=== PATIENT | female | born 1945 | race Caucasian/White ===

== ENCOUNTER → 2016-11-10 | Outpatient (CLI) | payer MEDICARE ==
[~2016-11-10] MED LIST: ALBU1.25 NEB; ASPI81TA2 PO; CRESTOR20 MG PO; FURO40TA4 PO; GABA-585 PO; GLIM4TAB2 PO; INSU100I11 SQ; INSU100I13 SQ; IOHEXOL 240 MG/ML 50ML VIAL. ONE; IOHEXOL 300 MG/ML 75 ML VIAL. IV ONE; LEVO175T5 PO; LISI-338 PO; METF10002 PO; NYST15CR TP; VALA500T PO
--- NOTE | 2016-11-10 13:49 | RAD ---
CT of the abdomen and pelvis with contrast, 11/10/2016: History: Chronic abdominal pain Multidetector CT imaging was performed following oral and IV administration of contrast. Comparison is made to a study from 07/20/2016. There are persistent streaky basilar opacities compatible with scarring and/or chronic atelectasis. No pleural fluid is present. The gallbladder is surgically absent. No hepatic abnormality is seen. There is mild prominence of the common bile duct compatible with the postcholecystectomy state. No pancreatic abnormality is detected. The spleen is of normal size. There is bilateral renal cortical scarring. There is no evidence of renal obstruction. There is a 17 mm unchanged cyst arising from the lateral aspect of the right kidney. Several other subcentimeter low-density cortical lesions on the right are too small to definitively characterize but are probably cysts. There is a medium density nodule arising from the lower pole of the left kidney. It is best delineated on the current coronal views. It measures approximately 13 mm in greatest dimension with an internal CT number of 33 Hounsfield units. It has shown no definite change since 07/20/2016. It was not visible on an older study from 08/21/2011. This may be a complicated cyst, although a solid mass cannot be excluded. There is moderate aortoiliac calcific plaquing. There is mild unchanged dilatation of the infrarenal abdominal aorta which measures 30 x 28 mm. No abdominal or pelvic adenopathy is seen. The uterus is surgically absent. Scattered colonic diverticula are present. No paracolonic inflammatory process is seen. There are surgical sutures related to the sigmoid colon. The bowel loops are not dilated. No free fluid or free air is evident in the abdomen or pelvis. There is a persistent discoid shaped fluid collection in the subcutaneous soft tissues of the anterior abdominal wall centered just left of midline at the upper pelvic level. This apparently represents a chronic postsurgical fluid collection. It has decreased slightly in size since the previous study, currently measuring approximately 2 cm in greatest AP dimension. Its wall contains tiny radiopacities compatible with calcifications. There are mild to moderate scattered degenerative changes in the spine. IMPRESSION: 1. Colonic diverticulosis. 2. The postsurgical fluid collection in the anterior pelvic wall has decreased slightly in size since 07/20/2016. 3. Small right renal cyst. 4. Small complicated cyst versus solid nodule in the left kidney. It is doubtful that sonographic evaluation of this lesion would be helpful due to the patient's size and the position of this lesion. CT or MR follow-up is suggested. 5. Chronic bibasilar atelectasis and/or scarring. 6. Stable small distal abdominal aortic aneurysm. PQRS Compliance Statement: One or more of the following individualized dose reduction techniques were utilized for this examination: 1. Automated exposure control 2. Adjustment of the mA and/or kV according to patient size 3. Use of iterative reconstruction technique
== END | disposition home or self-care (01) ==
LOC: CT 08:00
PROVIDERS: ATTEND Surgery
DX: R10.9 Unspecified abdominal pain (principal); I10 Essential (primary) hypertension; Z79.01 Long term (current) use of anticoagulants; Z87.891 Personal history of nicotine dependence; E11.9 Type 2 diabetes mellitus without complications
CPT/HCPCS: 74177; Q9966; Q9967

== ENCOUNTER 2018-08-09 11:51 | Observation (INO) | payer OTHER ==
[~2018-08-09] VITALS: Ht 149.9 cm; Wt 87.2 kg
[~2018-08-09 11:51] MED LIST changes: +ASPI-630 PO; -ASPI81TA2 PO; -IOHEXOL 240 MG/ML 50ML VIAL. ONE; -IOHEXOL 300 MG/ML 75 ML VIAL. IV ONE; -METF10002 PO; +METF10007 PO
[2018-08-09] MEDS ORDERED: ASPIRIN 81 MG TAB.CHEW PO ONE (12:45)
[2018-08-09] MEDS ORDERED: LORazepam 1 MG TABLET PO ONE (12:45)
[2018-08-09 12:47] LABS: BASO % 1 % (0-3); EOS # 0.1 x10^3/uL (0.0-0.7); EOS % 1 % (0-3); HEMATOCRIT 42.4 % (36.0-47.0); HEMOGLOBIN 14.3 g/dL (12.0-15.5); LYMPH # 1.4 x10^3/uL (1.0-4.8); LYMPH % 14 % (24-48); MEAN CORPUSCULAR HEMOGLOBIN 30 pg (25-35); MEAN CORPUSCULAR HGB CONC 34 g/dL (31-37); MEAN CORPUSCULAR VOLUME 90 fL (79-100); MONO # 0.9 x10^3/uL (0.0-1.1); MONO % 9 % (0-9); NEUT # 7.2 x10^3uL (1.8-7.7); NEUT % 75 % (31-73); PLATELET COUNT 271 x10^3/uL (140-400); RED BLOOD COUNT 4.72 x10^6/uL (3.50-5.40); RED CELL DISTRIBUTION WIDTH 14.6 % (11.5-14.5); WHITE BLOOD COUNT 9.7 x10^3/uL (4.0-11.0)
--- NOTE | 2018-08-09 12:52 | PHYS DOC ---
Past History Past Medical History: Anxiety, CAD, Diabetes, High Cholesterol, Heart Disease, Hypertension Past Surgical History: Coronary Bypass Surgery Smoking: Quit Greater Than 1 Year Adult General Chief Complaint Chief Complaint: CHEST PAIN HPI HPI Patient is a 73-year-old female presents to the emergency department for evaluation. She states that last night, he began experiencing some left-sided chest discomfort. She describes the pain as an achy pain, and it has been coming and going since then, and it has been occurring more frequently this morning. She has NOT had any significant shortness of breath and denies any pleuritic pain. Exertion does not seem to worsen her pain. She states the pain will last for a few seconds and then disappear. She has a past history of coronary artery disease with bypass surgery about 15 years ago, but is uncertain if the pain that she is experiencing is similar to her prior cardiac pain. She appears extremely anxious and does admit to an underlying history of anxiety. The patient does take baby aspirin daily, including this morning. Review of Systems Review of Systems Constitutional: Denies fever or chills [] Eyes: Denies change in visual acuity, redness, or eye pain [] HENT: Denies nasal congestion or sore throat [] Respiratory: Denies cough or shortness of breath [] Cardiovascular: No additional information not addressed in HPI [] GI: Denies abdominal pain, nausea, vomiting, bloody stools or diarrhea [] : Denies dysuria or hematuria [] Musculoskeletal: Denies back pain or joint pain [] Integument: Denies rash or skin lesions [] Neurologic: Denies headache, focal weakness or sensory changes [] Endocrine: Denies polyuria or polydipsia [] All other systems were reviewed and found to be within normal limits, except as documented in this note. Current Medications Current Medications Current Medications Medications (Trade) Dose Ordered Sig/Héctor Start Time Stop Time Status Last Admin Dose Admin Aspirin (Children'S Aspirin) 243 mg 1X ONCE 08/09/18 12:45 08/09/18 12:46 UNV Lorazepam (Ativan) 1 mg 1X ONCE 08/09/18 12:45 08/09/18 12:46 UNV Sodium Chloride 1,000 ml @ 75 mls/hr 1X ONCE 08/09/18 13:00 08/10/18 02:19 UNV Allergies Allergies Allergies Coded Allergies Type Severity Reaction Last Updated Verified morphine Allergy Unknown 07/20/16 Yes Physical Exam Physical Exam PHYSICAL EXAM: CONSTITUTIONAL: Well developed, well nourished HEAD: normocephalic, atraumatic EENT: PERRL, EOMI. Conjunctivae normal color, sclerae non-icteric; moist mucous membranes. NECK: Supple, non-tender; no meningismus. LUNGS: Lungs CTA, breathing even and unlabored. Normal air movement. HEART: Regular rate and rhythm, no murmur CHEST: No deformity; non-tender ABDOMEN: The abdomen is soft, and non-tender, no masses or bruits. EXTREM: Normal ROM; no deformity, no calf tenderness. Normal pulses palpable in all extremities. There is no pedal edema. SKIN: No rash; no diaphoresis NEURO: Alert; normal speech and cognition; CN's grossly intact; strength grossly intact without focal deficit. BACK: No CVA TTP. PSYCHIATRIC: The patient exhibits a severely anxious affect. Current Patient Data Lab Results Laboratory Tests Test 08/09/18 12:15 08/09/18 12:23 White Blood Count 9.7 x10^3/uL Red Blood Count 4.72 x10^6/uL Hemoglobin 14.3 g/dL Hematocrit 42.4 % Mean Corpuscular Volume 90 fL Mean Corpuscular Hemoglobin 30 pg Mean Corpuscular Hemoglobin Concent 34 g/dL Red Cell Distribution Width 14.6 % Platelet Count 271 x10^3/uL Neutrophils (%) (Auto) 75 % Lymphocytes (%) (Auto) 14 % Monocytes (%) (Auto) 9 % Eosinophils (%) (Auto) 1 % Basophils (%) (Auto) 1 % Neutrophils # (Auto) 7.2 x10^3uL Lymphocytes # (Auto) 1.4 x10^3/uL Monocytes # (Auto) 0.9 x10^3/uL Eosinophils # (Auto) 0.1 x10^3/uL Basophils # (Auto) 0.0 x10^3/uL Sodium Level 137 mmol/L Potassium Level 5.3 mmol/L Chloride Level 99 mmol/L Carbon Dioxide Level 26 mmol/L Anion Gap 12 Blood Urea Nitrogen 41 mg/dL Creatinine 1.5 mg/dL Estimated GFR (Cockcroft-Gault) 33.9 BUN/Creatinine Ratio 27 Glucose Level 195 mg/dL Calcium Level 9.6 mg/dL Magnesium Level 2.1 mg/dL Total Bilirubin 0.3 mg/dL Aspartate Amino Transf (AST/SGOT) 15 U/L Alanine Aminotransferase (ALT/SGPT) 16 U/L Alkaline Phosphatase 118 U/L Troponin I Quantitative < 0.017 ng/mL [id number]-Type Natriuretic Peptide 72 pg/mL Total Protein 7.2 g/dL Albumin 3.7 g/dL Albumin/Globulin Ratio 1.1 Glucose (Fingerstick) 164 mg/dL Current Medications Medications (Trade) Dose Ordered Sig/Héctor Route PRN Reason Start Time Stop Time Status Last Admin Dose Admin Aspirin (Children'S Aspirin) 243 mg 1X ONCE PO 08/09/18 12:45 08/09/18 12:52 DC 08/09/18 13:29 Lorazepam (Ativan) 1 mg 1X ONCE PO 08/09/18 12:45 08/09/18 12:52 DC 08/09/18 13:29 Sodium Chloride 1,000 ml @ 75 mls/hr 1X ONCE IV 08/09/18 13:00 08/10/18 02:19 08/09/18 13:29 Laboratory Tests Test 08/09/18 12:15 08/09/18 12:23 White Blood Count 9.7 x10^3/uL Red Blood Count 4.72 x10^6/uL Hemoglobin 14.3 g/dL Hematocrit 42.4 % Mean Corpuscular Volume 90 fL Mean Corpuscular Hemoglobin 30 pg Mean Corpuscular Hemoglobin Concent 34 g/dL Red Cell Distribution Width 14.6 % Platelet Count 271 x10^3/uL Neutrophils (%) (Auto) 75 % Lymphocytes (%) (Auto) 14 % Monocytes (%) (Auto) 9 % Eosinophils (%) (Auto) 1 % Basophils (%) (Auto) 1 % Neutrophils # (Auto) 7.2 x10^3uL Lymphocytes # (Auto) 1.4 x10^3/uL Monocytes # (Auto) 0.9 x10^3/uL Eosinophils # (Auto) 0.1 x10^3/uL Basophils # (Auto) 0.0 x10^3/uL Sodium Level 137 mmol/L Potassium Level 5.3 mmol/L Chloride Level 99 mmol/L Carbon Dioxide Level 26 mmol/L Anion Gap 12 Blood Urea Nitrogen 41 mg/dL Creatinine 1.5 mg/dL Estimated GFR (Cockcroft-Gault) 33.9 BUN/Creatinine Ratio 27 Glucose Level 195 mg/dL Calcium Level 9.6 mg/dL Magnesium Level 2.1 mg/dL Total Bilirubin 0.3 mg/dL Aspartate Amino Transf (AST/SGOT) 15 U/L Alanine Aminotransferase (ALT/SGPT) 16 U/L Alkaline Phosphatase 118 U/L Troponin I Quantitative < 0.017 ng/mL [id number]-Nhi-[id number]-Type Natriuretic Peptide 72 pg/mL Total Protein 7.2 g/dL Albumin 3.7 g/dL Albumin/Globulin Ratio 1.1 Glucose (Fingerstick) 164 mg/dL Current Medications Medications (Trade) Dose Ordered Sig/Héctor Route PRN Reason Start Time Stop Time Status Last Admin Dose Admin Aspirin (Children'S Aspirin) 243 mg 1X ONCE PO 08/09/18 12:45 08/09/18 12:52 DC 08/09/18 13:29 Lorazepam (Ativan) 1 mg 1X ONCE PO 08/09/18 12:45 08/09/18 12:52 DC 08/09/18 13:29 Sodium Chloride 1,000 ml @ 75 mls/hr 1X ONCE IV 08/09/18 13:00 08/10/18 02:19 08/09/18 13:29 Laboratory Tests Test 08/09/18 12:15 08/09/18 12:23 White Blood Count 9.7 x10^3/uL (4.0-11.0) Red Blood Count 4.72 x10^6/uL (3.50-5.40) Hemoglobin 14.3 g/dL (12.0-15.5) Hematocrit 42.4 % (36.0-47.0) Mean Corpuscular Volume 90 fL (79-100) Mean Corpuscular Hemoglobin 30 pg (25-35) Mean Corpuscular Hemoglobin Concent 34 g/dL (31-37) Red Cell Distribution Width 14.6 % (11.5-14.5) H Platelet Count 271 x10^3/uL (140-400) Neutrophils (%) (Auto) 75 % (31-73) H Lymphocytes (%) (Auto) 14 % (24-48) L Monocytes (%) (Auto) 9 % (0-9) Eosinophils (%) (Auto) 1 % (0-3) Basophils (%) (Auto) 1 % (0-3) Neutrophils # (Auto) 7.2 x10^3uL (1.8-7.7) Lymphocytes # (Auto) 1.4 x10^3/uL (1.0-4.8) Monocytes # (Auto) 0.9 x10^3/uL (0.0-1.1) Eosinophils # (Auto) 0.1 x10^3/uL (0.0-0.7) Basophils # (Auto) 0.0 x10^3/uL (0.0-0.2) Glucose (Fingerstick) 164 mg/dL (70-99) H EKG EKG [Normal sinus rhythm a rate of 107 beats for minute, normal axis, normal intervals, left atrial enlargement, there are no acute ischemic ST/T changes.] Radiology/Procedures Radiology/Procedures [PROCEDURE: CHEST AP ONLY Chest radiograph 08/09/2018 12:09 PM INDICATION: Shortness of air, chest pain COMPARISON: None available TECHNIQUE: Portable upright frontal view of the chest is provided. FINDINGS: The cardiomediastinal silhouette is enlarged. Median sternotomy changes are present. Bibasilar strandy density may represent subsegmental atelectasis versus infiltrates. Mild pulmonary vascular congestion. No pneumothorax. IMPRESSION: Bibasilar strandy density may represent subsegmental atelectasis versus infiltrates. Cardiomegaly with mild pulmonary vascular congestion as may be seen with congestive heart failure. ] Course & Med Decision Making Course & Med Decision Making Pertinent Labs and Imaging studies reviewed. (See chart for details) [] Dragon Disclaimer Dragon Disclaimer This electronic medical record was generated, in whole or in part, using a voice recognition dictation system. Departure Departure: Impression: Primary Impression: Atypical chest pain Additional Impression: Dehydration Disposition: ADMITTED INPATIENT Admitting Physician: Rachel Kramer Condition: STABLE Referrals: JOYCE MUNOZ (PCP) Problem Qualifiers MELIZA JACOBS MD Aug 09, 2018 12:52
[2018-08-09] MEDS ORDERED: IV NORMAL SALINE 1,000ML 1,000 ML IV ONE (13:00)
[2018-08-09 13:01] LABS: ALBUMIN 3.7 g/dL (3.4-5.0); ALBUMIN/GLOBULIN RATIO 1.1 (1.0-1.7); CALCIUM 9.6 mg/dL (8.5-10.1); CREATININE 1.5 mg/dL (0.6-1.0); GFR 33.9; POTASSIUM 5.3 mmol/L (3.5-5.1); TOTAL BILIRUBIN 0.3 mg/dL (0.2-1.0); TOTAL PROTEIN 7.2 g/dL (6.4-8.2)
--- NOTE | 2018-08-09 13:13 | RAD ---
Chest radiograph 08/09/2018 12:09 PM INDICATION: Shortness of air, chest pain COMPARISON: None available TECHNIQUE: Portable upright frontal view of the chest is provided. FINDINGS: The cardiomediastinal silhouette is enlarged. Median sternotomy changes are present. Bibasilar strandy density may represent subsegmental atelectasis versus infiltrates. Mild pulmonary vascular congestion. No pneumothorax. IMPRESSION: Bibasilar strandy density may represent subsegmental atelectasis versus infiltrates. Cardiomegaly with mild pulmonary vascular congestion as may be seen with congestive heart failure. Electronically signed by: Zhanna Daniels MD (08/09/2018 1:09 PM) [id number]
[2018-08-09 13:28] LABS: MAGNESIUM 2.1 mg/dL (1.8-2.4)
[2018-08-09 14:15] LABS: CLARITY,URINE HAZY; COLOR,URINE STRAW; GLUCOSE,URINE NEG (NEG)
[2018-08-09 14:16] LABS: BACTERIA,URINE MOD /HPF (0-FEW); BILIRUBIN,URINE NEG (NEG); NITRITE,URINE NEG (NEG); RBC,URINE 0 /HPF (0-2); SQUAMOUS EPITHELIAL CELL,UR FEW /LPF; UROBILINOGEN,URINE 0.2 mg/dL (0.2 mg/dL); WBC,URINE OCC /HPF (0-4)
[2018-08-09 15:09] VITALS: BP 102/59
[2018-08-09] MEDS ORDERED: SODIUM POLYSTYRENE SULFONATE 15 GM/60 ML ORAL.SUSP. PO ONE (16:45)
[2018-08-09] MEDS ORDERED: LACTULOSE 20 GM/30 ML SOLUTION. PO ONE (16:45)
--- NOTE | 2018-08-09 17:38 | EKG ---
[address] [address] Test Date: 2018-08-09 Test Time: 12:02:58 Pat Name: DIONTE CHAPA Department: Room: 117 A Gender: F [employer] Associate: DONALD : 1945 Requested By: MELIZA JACOBS Order Number: [id number] Reading MD: Todd Wolfe Measurements Intervals [place] Rate: 107 P: 71 MN: 136 QRS: 60 QRSD: 92 T: 69 QT: 344 QTc: 459 Interpretive Statements SINUS TACHYCARDIA LEFT ATRIAL ABNORMALITY Electronically Signed On 08-16-2018 11:05:24 ANIMAL SHELTER CLERK by Todd Wolfe
--- NOTE | 2018-08-09 17:41 | HP ---
ADMIT DATE: 08/09/2018 HISTORY OF PRESENT ILLNESS: This patient is a 73-year-old female patient, who came to the Emergency Department, complaining of a left-sided chest pain that she describes as sharp and stabbing, started last night that lasted only a few seconds. It comes and goes since then and has occurred more frequently this morning. She stated that her shortness of breath has not worsened and the sharp pain happens at rest and on exertion. She denied any nausea or vomiting. Denied any diaphoresis, denied any radiation of the pain. Pain is mostly located the left side below her left breast. 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 At that time, her stress test was normal. She was evaluated in the Emergency Room. Her troponin was less than 0.017 and her EKG showed that she was in sinus rhythm at a heart rate of 107 beats per minute, normal axis, normal intervals, left atrial enlargement. There is no acute distress, ischemic ST-T changes. Her chest x-ray showed no evidence of any bibasilar strandy density, may represent subsegmental atelectasis versus infiltrate. The patient was admitted with left-sided chest pain. She was admitted to rule out myocardial infarction and to do 2 more sets of cardiac enzyme and consult the cardiology team. PAST MEDICAL HISTORY: Significant for type 2 diabetes, hypertension, hyperlipidemia, coronary artery disease, status post CABG about 16 years ago. Her last stress test was done about more than 2 years ago. She is known to have hypothyroidism and chronic obstructive pulmonary disease. PAST SURGICAL HISTORY: Significant for coronary artery bypass graft surgery, hernia repair, partial colectomy for diverticulitis, total abdominal hysterectomy, bilateral salpingo-oophorectomy, appendectomy, cholecystectomy, and colonoscopy. She also has a history of deep vein thrombosis, treated with Coumadin for a few years and was involving her left lower extremity that was subsequently discontinued. ALLERGIES: SHE IS ALLERGIC TO MORPHINE. MEDICATIONS: She is currently on following medications: She is on valacyclovir 500 mg p.o. daily, albuterol sulfate 1.25 mg in 3 mL by nebulizer every 6 hours, Crestor 20 mg daily, lisinopril 5 mg daily, aspirin 81 mg once a day, gabapentin 100 mg 3 times a day, furosemide 40 mg daily, metformin 1000 mg p.o. b.i.d. She is on Lantus insulin 30 units subcutaneously at bedtime, Humalog insulin 3 times a day before meals, glimepiride 4 mg daily, levothyroxine sodium 175 mcg once a day, nystatin cream applied topically 3 times a day. FAMILY HISTORY: She has 3 sisters and 4 brothers, all except one sister. Her father at age of 81 because of motor vehicle accident. Mother at the age of 70 because of myocardial infarction. SOCIAL HISTORY: She is . She has 3 sons and 4 daughters. She quit smoking 4 years ago. She does not drink alcohol or recreational drugs. 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 REVIEW OF SYSTEMS: The patient denied any blurring of vision, cataract, glaucoma or macular degeneration. Denied any earache, tinnitus or sensorineural deafness. Denied any nosebleeds, stuffy nose or postnasal drip. Denied any sore throat, sore tongue, toothache, hoarseness of voice or difficulty swallowing. She denied any nausea, vomiting, diarrhea or constipation. Denied any hematemesis, melena or hematochezia. Denied any dysuria, frequency or hematuria. She did complain of chest pain, but denied any shortness of breath. Denied any cough, phlegm or hemoptysis. Denied any dizziness, lightheadedness, or vertigo. Denied any chills, rigors or fever. PHYSICAL EXAMINATION: GENERAL: On arrival to the Emergency Room, the patient looked well and was clearly in no apparent respiratory distress, somewhat pale, but no jaundice, cyanosis, or thyromegaly. No jugular venous distension. No limb edema. VITAL SIGNS: Her heart rate was 105, blood pressure 117/61, temperature was 97.9, respiratory rate was 18 and oxygen saturation was 95% on 2 liters of oxygen. HEAD, EYES, EARS, NOSE, AND THROAT: Showed normocephalic, atraumatic. NECK: Supple. HEART: Showed normal first and second heart sounds with no gallop, rub or murmur. CHEST: Clear to auscultation. No crepitation or rhonchi. ABDOMEN: Distended, soft, nontender. No guarding or rigidity. No organomegaly. All hernial orifice intact. Bowel sounds normal. NEUROLOGIC: She is awake, alert, responding appropriately. All cranial nerves intact. EXTREMITIES: She moves extremities without difficulty. She ambulates without assistance or assistive devices. She is on oxygen at 1 liter of oxygen, it used on exertion. LABORATORY DATA: Showed a white cell count of 9700, hemoglobin 14, hematocrit 42, MCV 90 and platelet count of 271,000. Her serum sodium was 137, potassium 5.3, chloride 99, bicarbonate 26, anion gap of 12, BUN 41, creatinine 1.5, estimated GFR was 33 mL per minute. Her glucose was 195, calcium was 9.6, and magnesium was 2.1. Total bilirubin, AST, ALT, alkaline phosphatase are normal except alkaline phosphatase was slightly elevated. Her first set of cardiac enzymes showed troponin to be less than 0.017. Beta-natriuretic peptide was 72. Total protein was 7.2, albumin was 3.7. Her urinalysis was unremarkable. Her chest x-ray showed that the cardiomediastinal silhouette is enlarged. Median sternotomy changes are present. Bibasilar strandy density may represent subsegmental atelectasis versus infiltrate, mild pulmonary vascular congestion, no pneumothorax. ASSESSMENT AND PLAN: In summary, this is a 73-year-old female patient, who came with somewhat atypical left-sided stabbing chest pain that lasted only about a few seconds, comes and goes and is not associated with any nausea, vomiting, no shortness of breath, no diaphoresis. It comes both with at rest and on exertion. She also has impaired kidney function as well as hyperkalemia. We will do 2 more sets of cardiac enzymes. I will also add D-dimer to rule out the possibility of DVT and PE. Currently, she has no leukocytosis and she is afebrile and at least for the time being, I will hold on antibiotic. FARTUN JOHNSON MD DR: MYRA/sherman JOB#: [id number] / [id number]
[2018-08-09] MEDS ORDERED: GLIP10TA13 PO (17:47)
[2018-08-09] MEDS ORDERED: LEVO100T5 PO (17:47)
[2018-08-09 20:23] VITALS: BP 125/60
[2018-08-09] MEDS: ALBUTEROL SULFATE 2.5 MG/3 ML NEBU. NEB SCH (20:45)
[2018-08-09] MEDS: GABAPENTIN 100 MG CAPSULE. PO SCH (21:11)
[2018-08-09] MEDS: NYSTATIN TOPICAL POWDER 15GM BOTTLE. TP SCH (21:11)
[2018-08-09] MEDS: HEPARIN for SUB-Q USE 5,000 UNIT/ML VIAL. SQ SCH (21:19)
[2018-08-09] MEDS: INSULIN GLARGINE 300 UNITS/3 ML INSULN.PEN. SQ SCH (21:19)
--- NOTE | 2018-08-09 22:38 | RAD ---
EXAM: Bilateral lower extremity venous Doppler sonogram. HISTORY: Pain and swelling. TECHNIQUE: Lebron scale and color Doppler sonographic evaluation of the bilateral lower extremity veins with spectral waveform analysis was performed. FINDINGS: There is normal color flow, normal compressibility and there are normal spectral waveforms in the common femoral, superficial femoral, popliteal, posterior tibial and greater saphenous veins. IMPRESSION: No Doppler evidence of lower extremity deep venous thrombosis. Electronically signed by: Nicol Mcknight MD (08/09/2018 10:35 PM) [facility]
[2018-08-10] MEDS ORDERED: NON FORMULARY ITEM (Albuterol Sulfate (Albuterol Sulfate Neb Soln) 1 VIAL) NEB SCH
[2018-08-10 00:38] VITALS: BP 125/70
[2018-08-10] MEDS: ALBUTEROL SULFATE 2.5 MG/3 ML NEBU. NEB SCH ×4 (05:15→21:03)
[2018-08-10 05:42] VITALS: BP 112/64
[2018-08-10] MEDS: LEVOTHYROXINE 100 MCG TABLET PO SCH (06:19)
[2018-08-10] MEDS: HEPARIN for SUB-Q USE 5,000 UNIT/ML VIAL. SQ SCH ×3 (06:20→21:17)
[2018-08-10] MEDS: ATORVASTATIN CALCIUM 20 MG TABLET PO SCH (08:16)
[2018-08-10] MEDS: GLIMEPIRIDE 2 MG TABLET PO SCH (08:17)
[2018-08-10] MEDS: ASPIRIN 81 MG TAB.CHEW PO SCH (08:17)
[2018-08-10] MEDS: LISINOPRIL 5 MG TABLET. PO SCH (08:17)
[2018-08-10] MEDS: FUROSEMIDE 40 MG TABLET PO SCH (08:17)
[2018-08-10] MEDS: GABAPENTIN 100 MG CAPSULE. PO SCH ×3 (08:17→21:04)
[2018-08-10] MEDS: metFORMIN 500 MG TABLET PO SCH ×2 (08:17→17:24)
[2018-08-10] MEDS: NYSTATIN TOPICAL POWDER 15GM BOTTLE. TP SCH ×2 (08:17→21:13)
[2018-08-10] MEDS: INSULIN LISPRO 300 UNITS/3 ML INSULN.PEN. SQ SCH ×3 (08:21→16:30)
[2018-08-10] MEDS ORDERED: LEVOTHYROXINE 175 MCG TABLET PO SCH (09:00)
[2018-08-10] MEDS ORDERED: VALACYCLOVIR HCL PO SCH (09:00)
--- NOTE | 2018-08-10 09:03 | PDOC2 ---
CONSULT Date of Admission DATE: 08/10/18 TIME: 08:59 Reason for Consult: cp Problem List Problems Medical Problems: (1) Atypical chest pain Status: Acute (2) Dehydration Status: Acute History of Present Illness Ms Ruiz is a 73 year old female with history of coronary artery disease s/p Bypass x 3, hypertension, hyperlipidemia, prior DVT, and diabetes who presents with complaints of chest pain. She describes a sudden squeezing sensation lasting only a couple seconds and occurring off and on. She denies any increase with exertion but does note increase with deep inspiration. She reports some mild dyspnea today but believes this is due to her COPD, she denies congestive symptoms but does sleep normally in a recliner since her bypass surgery. she denies any increased edema from her baseline. She denies any palpitations, lightheadedness or syncope. 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 Cardiovascular: CAD, HTN, [place], hyperipidemia, Other (DVT) Pulmonary: COPD (home oxygen with exertion only) GI: Diverticulosis Heme/Onc: No pertinent hx Hepatobiliary: No pertinent hx Psych: No pertinent hx Musculoskeletal: No pertinent hx Rheumatologic: No pertinent hx Infectious disease: No pertinent hx ENT: No pertinent hx Renal/: Chronic renal insuff Endocrine: Diabetes, Hypothyroidism Dermatology: No pertinent hx Past Surgical History CABG x 3, hysterectomy, bowel surgery Family History CAD Social History +smoker, no significant ETOH, no illicit drugs Current Medications Current Medications Aspirin (Children'S Aspirin) 243 mg 1X ONCE PO Last administered on at 13:29; Start 08/09/18 at 12:45; Stop 08/09/18 at 12:52; Status DC Lorazepam (Ativan) 1 mg 1X ONCE PO Last administered on 08/09/18at 13:29; Start 08/09/18 at 12:45; Stop 08/09/18 at 12:52; Status DC Sodium Chloride 1,000 ml @ 75 mls/hr 1X ONCE IV Last administered on at 13:29; Start 08/09/18 at 13:00; Stop 08/10/18 at 02:19; Status DC Sodium Polystyrene Sulfonate (Kayexalate) 15 gm 1X ONCE PO Last administered on 08/09/18at 18:00; Start 08/09/18 at 16:45; Stop 08/09/18 at 16:46; Status DC Lactulose (Lactulose) 20 gm 1X ONCE PO Last administered on 08/09/18at 18:00; Start 08/09/18 at 16:45; Stop 08/09/18 at 16:46; Status DC Heparin Sodium (Porcine) (Heparin Sodium) 5,000 unit Q8HRS SQ Last administered on 08/10/18 06:20; Start 08/09/18 at 22:00 Gabapentin (Neurontin) 100 mg TID PO Last administered on 08/10/18 08:17; Start 08/09/18 at 21:00 Insulin Glargine (Lantus) 55 units QHS SQ Last administered on 08/09/18at 21:19 ; Start 08/09/18 at 21:00 Insulin Human Lispro (HumaLOG) 18 units TIDAC SQ Last administered on at 08:21; Start 08/10/18 at 07:30 Levothyroxine Sodium (Synthroid) 100 mcg DAILY06 PO Last administered on at 06:19; Start 08/10/18 at 06:00 Levothyroxine Sodium (Synthroid) 175 mcg DAILY PO ; Start 08/10/18 at 09:00; Status UNV Non-Formulary Medication (Albuterol Sulfate (Albuterol Sulfate Neb Soln)) 1 vial Q6HRS NEB ; Start 08/10/18 at 00:00; Status UNV Aspirin (Children'S Aspirin) 81 mg DAILYWBKFT PO Last administered on at 08:17; Start 08/10/18 at 08:00 Furosemide (Lasix) 40 mg DAILY PO Last administered on 08/10/18at 08:17; Start 08/10/18 at 09:00 Glimepiride (Amaryl) 2 mg DAILY PO Last administered on 08/10/18at 08:17; Start 08/10/18 at 09:00 Glipizide (Glucotrol Er) 10 mg DAILY08 PO Last administered on 08/10/18at 08:17 ; Start 08/10/18 at 08:00 Lisinopril (Prinivil) 5 mg DAILY PO Last administered on 08/10/18at 08:17; Start 08/10/18 at 09:00 Metformin HCl (Glucophage) 1,000 mg BIDWMEALS PO Last administered on at 08:17; Start 08/10/18 at 08:00 Nystatin (Nystop) 1 johnson BID TP Last administered on 08/10/18at 08:17; Start at 21:00 Atorvastatin Calcium (Lipitor) 80 mg DAILY PO Last administered on 08/10/18at 08:16; Start 08/10/18 at 09:00 Non-Formulary Medication (Valacyclovir Hcl (Valacyclovir)) 1 tab DAILY PO ; Start 08/10/18 at 09:00; Status UNV Albuterol Sulfate (Ventolin) 2.5 mg RTQID NEB Last administered on 08/10/18at 05:15; Start 08/09/18 at 20:00 Active Scripts Active Reported Glipizide 10 Mg Tablet 1 Tab PO DAILY PRN Levothyroxine Sodium 100 Mcg Tablet 1 Tab PO DAILY PRN Nystatin 15 Gm Cream..g. 1 Johnson TP TID Valacyclovir (Valacyclovir Hcl) 500 Mg Tablet 1 Tab PO DAILY Crestor (Rosuvastatin Calcium) 20 Mg Tablet 1 Tab PO DAILY Metformin Hcl 1,000 Mg Tablet 1 Tab PO BID Lisinopril 5 Mg Tablet 1 Tab PO DAILY Levothyroxine Sodium 175 Mcg Tablet 1 Tab PO DAILY Humalog (Insulin Lispro) 100 Unit/1 Ml Insuln.pen 18 Unit SQ TIDAC Lantus Solostar (Insulin Glargine,Hum.rec.anlog) 100 Unit/1 Ml Insuln.pen 55 Unit SQ QHS Glimepiride 4 Mg Tablet 2 Tab PO DAILY Gabapentin (Gabapentin) 100 Mg Capsule 100 Mg PO TID Furosemide 40 Mg Tablet 1 Tab PO DAILY Aspirin 81 Mg Tab.chew 81 Mg PO DAILY Albuterol Sulfate Neb Soln (Albuterol Sulfate) 1.25 Mg/3 Ml Vial.neb 1 Vial NEB Q6HRS Allergies: Coded Allergies: morphine (Verified Allergy, Unknown, 07/20/16) Review of System as per HPI or negative General: Alert, Oriented X3, Cooperative, No acute distress HEENT: Atraumatic, EOMI, Other (No carotid bruits, no HJR/JVD) Lungs: Other (mildly decreased otherwise clear, no crackles, rhonchi or wheezing) Heart: Normal S1, Normal S2, Other (No gallops, clicks or rubs) Abdomen: Normal bowel sounds, Soft, No tenderness Extremities: No cyanosis, Normal pulses, Other (1+ edema left lower extremity > right) Neuro: Normal gait, Strength at 5/5 X4 ext Psych/Mental Status: Mental status NL, Mood NL VITALS Vital Signs Date Time Temp Pulse Resp B/P (MAP) Pulse Ox O2 Delivery O2 Flow Rate FiO2 08/10/18 08:17 76 112/64 08/10/18 08:00 Room Air 08/10/18 05:42 97.9 20 95 08/10/18 05:15 1.0 Labs Laboratory Tests Test 08/09/18 12:15 08/09/18 12:23 08/09/18 13:25 08/09/18 16:48 White Blood Count 9.7 x10^3/uL (4.0-11.0) Red Blood Count 4.72 x10^6/uL (3.50-5.40) Hemoglobin 14.3 g/dL (12.0-15.5) Hematocrit 42.4 % (36.0-47.0) Mean Corpuscular Volume 90 fL (79-100) Mean Corpuscular Hemoglobin 30 pg (25-35) Mean Corpuscular Hemoglobin Concent 34 g/dL (31-37) Red Cell Distribution Width 14.6 % (11.5-14.5) Platelet Count 271 x10^3/uL (140-400) Neutrophils (%) (Auto) 75 % (31-73) Lymphocytes (%) (Auto) 14 % (24-48) Monocytes (%) (Auto) 9 % (0-9) Eosinophils (%) (Auto) 1 % (0-3) Basophils (%) (Auto) 1 % (0-3) Neutrophils # (Auto) 7.2 x10^3uL (1.8-7.7) Lymphocytes # (Auto) 1.4 x10^3/uL (1.0-4.8) Monocytes # (Auto) 0.9 x10^3/uL (0.0-1.1) Eosinophils # (Auto) 0.1 x10^3/uL (0.0-0.7) Basophils # (Auto) 0.0 x10^3/uL (0.0-0.2) Sodium Level 137 mmol/L (136-145) Potassium Level 5.3 mmol/L (3.5-5.1) Chloride Level 99 mmol/L (98-107) Carbon Dioxide Level 26 mmol/L (21-32) Anion Gap 12 (6-14) Blood Urea Nitrogen 41 mg/dL (7-20) Creatinine 1.5 mg/dL (0.6-1.0) Estimated GFR (Cockcroft-Gault) 33.9 BUN/Creatinine Ratio 27 (6-20) Glucose Level 195 mg/dL (70-99) Calcium Level 9.6 mg/dL (8.5-10.1) Magnesium Level 2.1 mg/dL (1.8-2.4) Total Bilirubin 0.3 mg/dL (0.2-1.0) Aspartate Amino Transf (AST/SGOT) 15 U/L (15-37) Alanine Aminotransferase (ALT/SGPT) 16 U/L (14-59) Alkaline Phosphatase 118 U/L (46-116) Troponin I Quantitative < 0.017 ng/mL (0-0.055) FG-Gag-Q-Type Natriuretic Peptide 72 pg/mL (0-124) Total Protein 7.2 g/dL (6.4-8.2) Albumin 3.7 g/dL (3.4-5.0) Albumin/Globulin Ratio 1.1 (1.0-1.7) Glucose (Fingerstick) 164 mg/dL (70-99) Urine Collection Type Unknown Urine Color Straw Urine Clarity Hazy Urine pH 6.5 Urine Specific [place] 1.010 Urine Protein Neg (NEG-TRACE) Urine Glucose (UA) Neg mg/dL (NEG) Urine Ketones (Stick) Neg mg/dL (NEG) Urine Blood Neg (NEG) Urine Nitrite Neg (NEG) Urine Bilirubin Neg (NEG) Urine Urobilinogen Dipstick 0.2 mg/dL (0.2 mg/dL) Urine Leukocyte Esterase Neg (NEG) Urine RBC 0 /HPF (0-2) Urine WBC Occ /HPF (0-4) Urine Squamous Epithelial Cells Few /LPF Urine Bacteria Mod /HPF (0-FEW) D-Dimer (Dedra) 1.12 mg/L (0.00-0.50) Test 08/09/18 17:13 08/09/18 20:00 08/09/18 20:05 08/10/18 00:13 Glucose (Fingerstick) 116 mg/dL (70-99) 172 mg/dL (70-99) 176 mg/dL (70-99) Troponin I Quantitative < 0.017 ng/mL (0-0.055) Test 08/10/18 03:55 08/10/18 06:39 08/10/18 07:19 Glucose (Fingerstick) 72 mg/dL (70-99) 132 mg/dL (70-99) 110 mg/dL (70-99) Images EKG - sinus tachycardia, no acute ischemic changes LE venous duplex - IMPRESSION: No Doppler evidence of lower extremity deep venous thrombosis. CXR- IMPRESSION: Bibasilar strandy density may represent subsegmental atelectasis versus infiltrates. Cardiomegaly with mild pulmonary vascular congestion as may be seen with congestive heart failure. Assessment/Plan 1. chest pain - atypical. [place] ruled out. No acute ischemic EKG changes. check echo, lipids, continue aspirin, statin. No beta ebonie currently due to COPD. 2. CAD s/p CABG x 3, continue aspirin, statin. 3. HTN - controlled on current meds 4. HLD - check lipids, continue statin 5. elevated d dimer - check VQ 6. DM - as per PCP If no significant abn on above, suggest outpatient MPI. LATRICIA YI APRN Aug 10, 2018 09:03
[2018-08-10 10:20] VITALS: BP 116/70
--- NOTE | 2018-08-10 13:10 | RAD ---
VQ Scan: Clinical History: Dyspnea, chest pain COMPARISON: None available FINDINGS: Technique: 10 mCi of xenon-133 was administered by ventilation spot views were obtained on a gamma camera for a Nuclear Medicine ventilation examination. 5.5 mCi of Tc 99m MAA was administered intravenously and spot views were obtained on the gamma camera for a Nuclear Medicine perfusion examination. Findings: There is a minimal retention of radiotracer identified in the bilateral lungs on the washout phase images of the ventilation likely due to airway disease. Perfusion images are homogeneous without perfusion defects. Impression: 1. Very low probability for pulmonary embolism. 2. Retention of the radiotracer on ventilation images on the washout phase likely due to airway disease. Electronically signed by: Darryn Jefferson MD (08/10/2018 1:06 PM) [place] [id number]
[2018-08-10 14:30] VITALS: BP 102/58
[2018-08-10 19:35] VITALS: BP 111/68
[2018-08-10] MEDS: INSULIN GLARGINE 300 UNITS/3 ML INSULN.PEN. SQ SCH (21:12)
[2018-08-10 23:33] VITALS: BP 118/73
[2018-08-11] MEDS: ALBUTEROL SULFATE 2.5 MG/3 ML NEBU. NEB SCH (05:10)
[2018-08-11 05:49] VITALS: BP 105/66
[2018-08-11] MEDS: LEVOTHYROXINE 100 MCG TABLET PO SCH (06:31)
[2018-08-11] MEDS: HEPARIN for SUB-Q USE 5,000 UNIT/ML VIAL. SQ SCH (06:34)
--- NOTE | 2018-08-11 07:29 | CARD ---
MR#: [id number] Date of Study: 08/10/2018 Ordering Physician: LATRICIA YI, Referring Physician: FARTUN JOHNSON Tech: Taylor Moser APPROVED REPORT EXAM: Two-dimensional and M-mode echocardiogram with Doppler and color Doppler. Other Information Quality : AverageHR: 97bpm INDICATION CAD Chest Pain RISK FACTORS Hypertension Hyperlipidemia Diabetes 2D DIMENSIONS RVDd2.7 (2.9-3.5cm)Left Atrium(2D)3.1 (1.6-4.0cm) IVSd1.5 (0.7-1.1cm)Aortic Root(2D)2.8 (2.0-3.7cm) LVDd4.1 (3.9-5.9cm)LVOT Diameter2.1 (1.8-2.4cm) PWd1.1 (0.7-1.1cm)LVDs2.2 (2.5-4.0cm) FS (%) 46.8 %SV57.3 ml LVEF(%)78.7 (>50%) Aortic Valve AoV Peak Topher.158.6cm/sAoV VTI30.5cm AO Peak GR.10.1mmHgLVOT Peak Topher.114.5cm/s LVOT VTI 24.30cmAO Mean GR.6mmHg JONATHAN (VMAX)2.30yv5LPZ (VTI)2.87cm2 Mitral Valve MV E Lzycdqav34.8cm/sMV DECEL LXNN767cr MV A Taqtygns741.8cm/sE/A Ratio0.7 Pulmonary Valve PV Peak Ejhxkzlc71.5cm/sPV Peak Grad.4mmHg Tricuspid Valve RAP [id number] LEFT VENTRICLE The left ventricle is normal size. There is mild to moderate concentric left ventricular hypertrophy. The left ventricular systolic function is normal. The Ejection Fraction is 55-60%. There is normal L V segmental wall motion. Transmitral Doppler flow pattern is Grade I-abnormal relaxation pattern. RIGHT VENTRICLE The right ventricle is normal size. There is normal right ventricular wall thickness. ATRIA The left atrium size is normal. The right atrium size is normal. The interatrial septum is intact wit h no evidence for an atrial septal defect or patent foramen ovale as noted on 2-D or Doppler imaging. AORTIC VALVE The aortic valve is not well visualized. Aortic regurgitation not well interrogated but there appears to be mild to moderate insufficiency. There is no significant aortic valvular stenosis. MITRAL VALVE The mitral valve is normal in structure and function. There is no evidence of mitral valve prolapse. There is no mitral valve stenosis. Doppler and Color Flow revealed no mitral valve regurgitation note d. TRICUSPID VALVE The tricuspid valve is not well visualized. Doppler and Color Flow revealed no tricuspid valve regurg itation noted. There is no tricuspid valve stenosis. PULMONIC VALVE The pulmonic valve is not well visualized. Doppler and Color Flow revealed no pulmonic valvular regur gitation. GREAT VESSELS The aortic root is normal in size. The IVC was not visualized. PERICARDIAL EFFUSION There is no evidence of significant pericardial effusion. Critical Notification Critical Value: No <Conclusion> The left ventricular systolic function is normal. The Ejection Fraction is 55-60%. There is normal LV segmental wall motion. Transmitral Doppler flow pattern is Grade I-abnormal relaxation pattern. Aortic regurgitation not well interrogated but there appears to be mild to moderate insufficiency. There is no evidence of significant pericardial effusion. Signed by : Ector Garcia, Electronically Approved : 08/11/2018 07:27:56
[2018-08-11] MEDS: INSULIN LISPRO 300 UNITS/3 ML INSULN.PEN. SQ SCH (07:30)
[2018-08-11] MEDS: FUROSEMIDE 40 MG TABLET PO SCH (08:19)
[2018-08-11] MEDS: metFORMIN 500 MG TABLET PO SCH (08:19)
[2018-08-11] MEDS: ATORVASTATIN CALCIUM 20 MG TABLET PO SCH (08:19)
[2018-08-11 08:20] VITALS: BP 105/66
[2018-08-11] MEDS: GLIMEPIRIDE 2 MG TABLET PO SCH (08:20)
[2018-08-11] MEDS: ASPIRIN 81 MG TAB.CHEW PO SCH (08:20)
[2018-08-11] MEDS: GABAPENTIN 100 MG CAPSULE. PO SCH (08:20)
[2018-08-11] MEDS: LISINOPRIL 5 MG TABLET. PO SCH (08:20)
--- NOTE | 2018-08-11 08:59 | PDOC ---
PROGRESS NOTES Diagnosis Problem Problems Medical Problems: (1) Atypical chest pain Status: Acute (2) Dehydration Status: Acute Assessment Problems Medical Problems: (1) Atypical chest pain Status: Acute (2) Dehydration Status: Acute 1. chest pain - atypical. [place] ruled out. No acute ischemic EKG changes. normal LVEF and wall motion. continue aspirin, statin. No beta ebonie currently due to COPD. 2. CAD s/p CABG x 3, continue aspirin, statin. currently angina free. outpatient stress test. 3. HTN - controlled on current meds 4. HLD - continue statin 5. elevated d dimer - low prob VQ and negative venous duplex. 6. DM - as per PCP stable for outpatient stress testing. Objective Vital Signs Date Time Temp Pulse Resp B/P (MAP) Pulse Ox O2 Delivery O2 Flow Rate FiO2 08/11/18 08:20 85 105/66 08/11/18 05:49 97.9 20 94 Nasal Cannula 2.0 Intake and Output 08/11/18 07:01 Intake Total 1320 ml Balance 1320 ml Intake Oral 1320 ml # Voids 2 # Bowel Movements 1 Review of Relevant I have reviewed the following items dickson (where applicable) has been applied. Labs Laboratory Tests Test 08/09/18 12:15 08/09/18 12:23 08/09/18 13:25 08/09/18 16:48 White Blood Count 9.7 x10^3/uL (4.0-11.0) Red Blood Count 4.72 x10^6/uL (3.50-5.40) Hemoglobin 14.3 g/dL (12.0-15.5) Hematocrit 42.4 % (36.0-47.0) Mean Corpuscular Volume 90 fL (79-100) Mean Corpuscular Hemoglobin 30 pg (25-35) Mean Corpuscular Hemoglobin Concent 34 g/dL (31-37) Red Cell Distribution Width 14.6 % (11.5-14.5) Platelet Count 271 x10^3/uL (140-400) Neutrophils (%) (Auto) 75 % (31-73) Lymphocytes (%) (Auto) 14 % (24-48) Monocytes (%) (Auto) 9 % (0-9) Eosinophils (%) (Auto) 1 % (0-3) Basophils (%) (Auto) 1 % (0-3) Neutrophils # (Auto) 7.2 x10^3uL (1.8-7.7) Lymphocytes # (Auto) 1.4 x10^3/uL (1.0-4.8) Monocytes # (Auto) 0.9 x10^3/uL (0.0-1.1) Eosinophils # (Auto) 0.1 x10^3/uL (0.0-0.7) Basophils # (Auto) 0.0 x10^3/uL (0.0-0.2) Sodium Level 137 mmol/L (136-145) Potassium Level 5.3 mmol/L (3.5-5.1) Chloride Level 99 mmol/L (98-107) Carbon Dioxide Level 26 mmol/L (21-32) Anion Gap 12 (6-14) Blood Urea Nitrogen 41 mg/dL (7-20) Creatinine 1.5 mg/dL (0.6-1.0) Estimated GFR (Cockcroft-Gault) 33.9 BUN/Creatinine Ratio 27 (6-20) Glucose Level 195 mg/dL (70-99) Calcium Level 9.6 mg/dL (8.5-10.1) Magnesium Level 2.1 mg/dL (1.8-2.4) Total Bilirubin 0.3 mg/dL (0.2-1.0) Aspartate Amino Transf (AST/SGOT) 15 U/L (15-37) Alanine Aminotransferase (ALT/SGPT) 16 U/L (14-59) Alkaline Phosphatase 118 U/L (46-116) Troponin I Quantitative < 0.017 ng/mL (0-0.055) TQ-Ynw-L-Type Natriuretic Peptide 72 pg/mL (0-124) Total Protein 7.2 g/dL (6.4-8.2) Albumin 3.7 g/dL (3.4-5.0) Albumin/Globulin Ratio 1.1 (1.0-1.7) Triglycerides Level 234 mg/dL (0-150) Cholesterol Level 235 mg/dL (0-200) LDL Cholesterol, Calculated 144 mg/dL (0-100) VLDL Cholesterol, Calculated 46 mg/dL (0-40) Non-HDL Cholesterol Calculated 190 mg/dL (0-129) HDL Cholesterol 45 mg/dL (40-60) Cholesterol/HDL Ratio 5.0 Glucose (Fingerstick) 164 mg/dL (70-99) Urine Collection Type Unknown Urine Color Straw Urine Clarity Hazy Urine pH 6.5 Urine Specific [place] 1.010 Urine Protein Neg (NEG-TRACE) Urine Glucose (UA) Neg mg/dL (NEG) Urine Ketones (Stick) Neg mg/dL (NEG) Urine Blood Neg (NEG) Urine Nitrite Neg (NEG) Urine Bilirubin Neg (NEG) Urine Urobilinogen Dipstick 0.2 mg/dL (0.2 mg/dL) Urine Leukocyte Esterase Neg (NEG) Urine RBC 0 /HPF (0-2) Urine WBC Occ /HPF (0-4) Urine Squamous Epithelial Cells Few /LPF Urine Bacteria Mod /HPF (0-FEW) D-Dimer (Dedra) 1.12 mg/L (0.00-0.50) Test 08/09/18 17:13 08/09/18 20:00 08/09/18 20:05 08/10/18 00:13 Glucose (Fingerstick) 116 mg/dL (70-99) 172 mg/dL (70-99) 176 mg/dL (70-99) Troponin I Quantitative < 0.017 ng/mL (0-0.055) Test 08/10/18 03:55 08/10/18 06:39 08/10/18 07:19 08/10/18 11:36 Glucose (Fingerstick) 72 mg/dL (70-99) 132 mg/dL (70-99) 110 mg/dL (70-99) 131 mg/dL (70-99) Test 08/10/18 16:48 08/10/18 20:45 08/11/18 03:08 08/11/18 07:19 Glucose (Fingerstick) 138 mg/dL (70-99) 155 mg/dL (70-99) 94 mg/dL (70-99) 94 mg/dL (70-99) Microbiology 08/09/18 Urine Culture - Preliminary, Resulted 08/09/18 Urine Culture Result 1 (KJ) - Preliminary, Resulted Medications Current Medications Aspirin (Children'S Aspirin) 243 mg 1X ONCE PO Last administered on at 13:29; Start 08/09/18 at 12:45; Stop 08/09/18 at 12:52; Status DC Lorazepam (Ativan) 1 mg 1X ONCE PO Last administered on 08/09/18 13:29; Start 08/09/18 at 12:45; Stop 08/09/18 at 12:52; Status DC Sodium Chloride 1,000 ml @ 75 mls/hr 1X ONCE IV Last administered on at 13:29; Start 08/09/18 at 13:00; Stop 08/10/18 at 02:19; Status DC Sodium Polystyrene Sulfonate (Kayexalate) 15 gm 1X ONCE PO Last administered on 08/09/18at 18:00; Start 08/09/18 at 16:45; Stop 08/09/18 at 16:46; Status DC Lactulose (Lactulose) 20 gm 1X ONCE PO Last administered on 08/09/18at 18:00; Start 08/09/18 at 16:45; Stop 08/09/18 at 16:46; Status DC Heparin Sodium (Porcine) (Heparin Sodium) 5,000 unit Q8HRS SQ Last administered on 08/11/18at 06:34; Start 08/09/18 at 22:00 Gabapentin (Neurontin) 100 mg TID PO Last administered on 08/11/18at 08:20; Start 08/09/18 at 21:00 Insulin Glargine (Lantus) 55 units QHS SQ Last administered on 08/10/18at 21:12 ; Start 08/09/18 at 21:00 Insulin Human Lispro (HumaLOG) 18 units TIDAC SQ Last administered on at 08:21; Start 08/10/18 at 07:30 Levothyroxine Sodium (Synthroid) 100 mcg DAILY06 PO Last administered on 06:31; Start 08/10/18 at 06:00 Levothyroxine Sodium (Synthroid) 175 mcg DAILY PO ; Start 08/10/18 at 09:00; Status UNV Non-Formulary Medication (Albuterol Sulfate (Albuterol Sulfate Neb Soln)) 1 vial Q6HRS NEB ; Start 08/10/18 at 00:00; Status UNV Aspirin (Children'S Aspirin) 81 mg DAILYWBKFT PO Last administered on at 08:20; Start 08/10/18 at 08:00 Furosemide (Lasix) 40 mg DAILY PO Last administered on 08/11/18 08:19; Start 08/10/18 at 09:00 Glimepiride (Amaryl) 2 mg DAILY PO Last administered on 08/11/18 08:20; Start 08/10/18 at 09:00 Glipizide (Glucotrol Er) 10 mg DAILY08 PO Last administered on 08/11/18 08:19 ; Start 08/10/18 at 08:00 Lisinopril (Prinivil) 5 mg DAILY PO Last administered on 08/11/18 08:20; Start 08/10/18 at 09:00 Metformin HCl (Glucophage) 1,000 mg BIDWMEALS PO Last administered on 08:19; Start 08/10/18 at 08:00 Nystatin (Nystop) 1 johnson BID TP Last administered on 08/10/18at 21:13; Start at 21:00 Atorvastatin Calcium (Lipitor) 80 mg DAILY PO Last administered on 08/11/18 08:19; Start 08/10/18 at 09:00 Non-Formulary Medication (Valacyclovir Hcl (Valacyclovir)) 1 tab DAILY PO ; Start 08/10/18 at 09:00; Status UNV Albuterol Sulfate (Ventolin) 2.5 mg RTQID NEB Last administered on 08/11/18at 05:10; Start 08/09/18 at 20:00 Active Scripts Active Reported Glipizide 10 Mg Tablet 1 Tab PO DAILY PRN Levothyroxine Sodium 100 Mcg Tablet 1 Tab PO DAILY PRN Nystatin 15 Gm Cream..g. 1 Johnson TP TID Valacyclovir (Valacyclovir Hcl) 500 Mg Tablet 1 Tab PO DAILY Crestor (Rosuvastatin Calcium) 20 Mg Tablet 1 Tab PO DAILY Metformin Hcl 1,000 Mg Tablet 1 Tab PO BID Lisinopril 5 Mg Tablet 1 Tab PO DAILY Levothyroxine Sodium 175 Mcg Tablet 1 Tab PO DAILY Humalog (Insulin Lispro) 100 Unit/1 Ml Insuln.pen 18 Unit SQ TIDAC Lantus Solostar (Insulin Glargine,Hum.rec.anlog) 100 Unit/1 Ml Insuln.pen 55 Unit SQ QHS Glimepiride 4 Mg Tablet 2 Tab PO DAILY Gabapentin (Gabapentin) 100 Mg Capsule 100 Mg PO TID Furosemide 40 Mg Tablet 1 Tab PO DAILY Aspirin 81 Mg Tab.chew 81 Mg PO DAILY Albuterol Sulfate Neb Soln (Albuterol Sulfate) 1.25 Mg/3 Ml Vial.neb 1 Vial NEB Q6HRS Vitals/I & O Vital Sign - Last 24 Hours 08/10/18 08/10/18 08/10/18 08/10/18 10:20 10:26 14:30 16:17 Temp 98.0 98.2 Pulse 72 97 Resp 20 20 B/P (MAP) 116/70 (85) 102/58 (73) Pulse Ox 92 94 95 95 O2 Delivery Room Air Room Air Room Air Room Air 08/10/18 08/10/18 08/10/18 08/11/18 19:35 20:00 23:33 05:10 Temp 98.1 98.2 Pulse 88 106 Resp 20 18 B/P (MAP) 111/68 (82) 118/73 (88) Pulse Ox 92 94 94 O2 Delivery Room Air Room Air Room Air Room Air 08/11/18 08/11/18 05:49 08:20 Temp 97.9 Pulse 85 85 Resp 20 B/P (MAP) 105/66 (79) 105/66 Pulse Ox 94 O2 Delivery Nasal Cannula O2 Flow Rate 2.0 Intake and Output 08/10/18 08/10/18 08/11/18 15:01 23:01 07:01 Intake Total 840 ml 480 ml Balance 840 ml 480 ml LATRICIA YI APRN Aug 11, 2018 08:59
[2018-08-11] MEDS: NYSTATIN TOPICAL POWDER 15GM BOTTLE. TP SCH (09:00)
--- NOTE | 2018-08-12 16:53 | DS ---
DATE OF DISCHARGE: 08/11/2018 HISTORY OF PRESENT ILLNESS: The patient is a 73-year-old female patient, who came with chest pain, it is typical. She has 3 sets of cardiac enzymes that ruled out myocardial infarction. EKG showed no ischemic changes. She did have an echocardiogram, which basically showed that she has left ventricular systolic function is normal and ejection fraction is 55-60%. There is normal left ventricular segmental wall motion. Transmitral Doppler flow pattern is grade 1 abnormal relaxation pattern. She has aortic regurgitation, not well interrogated, but there appears to be mild to moderate insufficiency. There is no evidence of significant pericardial effusion. PHYSICAL EXAMINATION: GENERAL: On the day of discharge the patient looked well and was clearly in no apparent respiratory distress. VITAL SIGNS: Her heart rate was 85, blood pressure was 105/66, temperature was 97.9, respiratory rate 20, and oxygen saturation was 94% on 2 liters of oxygen. HEAD, EYES, EARS, NOSE AND THROAT: Showed normocephalic, atraumatic. NECK: Supple. HEART: Showed normal first and second heart sounds. No gallop, rub or murmur. CHEST: Clear to auscultation. No crepitation or rhonchi. ABDOMEN: Distended, soft, nontender. No guarding or rigidity. No organomegaly. All hernial orifice intact. Bowel sounds normal. NEUROLOGIC: She is awake, alert, responding appropriately. All cranial nerves intact. EXTREMITIES: She moves extremities without difficulty. She ambulates without assistance or assistive devices. LABORATORY DATA: Showed a white cell count 9700, hemoglobin 14, hematocrit 42, MCV 90 and platelet count 271,000. Serum sodium was 137, potassium 4.3, chloride 99, bicarbonate 26, anion gap of 12, BUN 41, creatinine 1.5, estimated GFR was 33 mL per minute. Her glucose 195, calcium 9.6. Total bilirubin, AST, ALT, alkaline phosphatase were normal. Total protein 7.2, albumin 3.7. Three sets of cardiac enzymes showed that troponin was less than 0.017. DISCHARGE MEDICATIONS: She was discharged home to continue on her medications that include albuterol sulfate 1.25 mg 3 mL by nebulizer every 6 hours, aspirin 81 mg once a day, furosemide 40 mg once a day, gabapentin 100 mg 3 times a day, glyburide 4 mg, she takes 2 tablets daily; glipizide 10 mg daily, Lantus insulin 55 units at bedtime, insulin lispro 18 units before meals, levothyroxine sodium 175 mcg once a day, levothyroxine 100 mcg once a day, lisinopril 5 mg daily, metformin 1000 mg twice a day, Crestor 20 mg daily, valacyclovir 500 mg daily and nystatin cream applied topically twice a day to the groin area. FINAL DISCHARGE DIAGNOSES: 1. Chest pain, atypical, myocardial infarction ruled out. Other medical problems include coronary artery disease, status post CABG to continue aspirin, nystatin, to arrange for stress test as an outpatient. 2. Hypertension is well controlled. 3. Hyperlipidemia, on statin. 4. Elevated D-dimer, but low probability V/Q scan and venous Doppler ultrasound. 5. Type 2 diabetes mellitus. FARTUN JOHNSON MD DR: MYRA/sherman JOB#: [id number] / [id number]
--- NOTE | 2018-08-12 21:46 | PN ---
DATE: 08/10/2018 SUBJECTIVE: The patient was sitting comfortably in her bed, in no apparent distress. She has had no further episode of chest pain. We did actually venous Doppler ultrasounds of both lower extremities that were negative for deep vein thrombosis. Given her slightly impaired kidney function, I ordered a V/Q scan, which was also negative and read as a very low probability for pulmonary embolism. The patient was scheduled for echocardiogram that was not done, and a decision was made to obviously await the result of the echocardiogram before discharging her. PHYSICAL EXAMINATION: GENERAL: When I examined her, she looked well and was clearly in no apparent respiratory distress. VITAL SIGNS: Her heart rate was 106, blood pressure was 118/73, temperature was 98.2, respiratory rate was 18 and oxygen saturation was 94%. HEAD, EYES, EARS, NOSE AND THROAT: Showed normocephalic, atraumatic. NECK: Supple. HEART: Showed normal first and second heart sounds. No gallop, rub or murmur. CHEST: Clear to auscultation. No crepitation or rhonchi. ABDOMEN: Distended, soft, nontender. NEUROLOGIC: She was awake, alert, responding appropriately. Cranial nerves are intact. She moves extremities without difficulty. LABORATORY DATA: Her blood sugar seems to be well controlled. ASSESSMENT AND PLAN: Atypical chest pain, myocardial infarction was ruled out, with no acute ischemic EKG changes. The patient is known to have coronary artery disease, status post coronary artery bypass graft x3. Hypertension seems to be well controlled. Hyperlipidemia. Elevated D-dimer with negative Doppler venous ultrasound and V/Q scan. Type 2 diabetes mellitus seems to be reasonably controlled. FARTUN JOHNSON MD DR: MYRA/sherman JOB#: [id number] / [id number]
== END 2018-08-11 10:40 | disposition home or self-care (01) ==
LOC: ER 11:51 → INTOOBSV 14:20 → 1 SOUTH 14:20
PROVIDERS: ADMIT Internal Medicine; ATTEND Internal Medicine
DX: R07.89 Other chest pain (principal); E86.0 Dehydration; E78.5 Hyperlipidemia, unspecified; E78.00 Pure hypercholesterolemia, unspecified; I12.9 Hypertensive chronic kidney disease with stage 1 through stage 4 chronic kidney disease, or unspecified chronic kidney disease; I25.10 Atherosclerotic heart disease of native coronary artery without angina pectoris; E11.22 Type 2 diabetes mellitus with diabetic chronic kidney disease; N18.9 Chronic kidney disease, unspecified; K57.90 Diverticulosis of intestine, part unspecified, without perforation or abscess without bleeding; J44.9 Chronic obstructive pulmonary disease, unspecified; R79.89 Other specified abnormal findings of blood chemistry; E03.9 Hypothyroidism, unspecified; Z79.82 Long term (current) use of aspirin; Z82.49 Family history of ischemic heart disease and other diseases of the circulatory system; Z87.891 Personal history of nicotine dependence; Z90.710 Acquired absence of both cervix and uterus; Z95.1 Presence of aortocoronary bypass graft; Z79.899 Other long term (current) drug therapy; Z88.8 Allergy status to other drugs, medicaments and biological substances
CPT/HCPCS: 36415; 71045; 78582; 80053; 80061; 81001; 82947; 83735; 83880; 84484; 85025; 85379; 87086; 87186; 93005; 93306; 93970; 94640; 96360; 96361; 96372; 96374; A9540; A9558; G0378; G0379; J1644; J1815; J7613; 99285-25; J7030

== ENCOUNTER → 2018-09-01 | Outpatient (CLI) | payer MEDICARE ==
[2018-08-11 08:20] VITALS: BP 105/66
[~2018-09-01] MED LIST changes: +GLIP10TA13 PO; +LEVO100T5 PO
--- NOTE | 2018-09-01 14:44 | RAD ---
Examination: CT of the abdomen pelvis without contrast HISTORY: History of left flank pain COMPARISON: 11/10/2016 TECHNIQUE: Axial CT images of the abdomen pelvis were performed without contrast. Coronal and sagittal reformats are performed. Exposure: One or more of the following individualized dose reduction techniques were utilized for this examination: 1. Automated exposure control 2. Adjustment of the mA and/or kV according to patient size 3. Use of iterative reconstruction technique FINDINGS: Focal consolidation identified in the right middle lobe of the lung with patchy bibasilar lung airspace opacities likely atelectasis or infiltrates. Partially visualized colon coronary artery calcifications identified. No evidence of free air identified in the abdomen. The evaluation of the solid organs is limited due to lack of IV contrast. The evaluation of the bowel is limited due to lack of oral contrast. The visualized noncontrasted liver, spleen, adrenals grossly appears unremarkable. Cholecystectomy clips identified. The stomach is mildly distended. Small bowel is nondilated. Feces and gas noted in the colon. Sigmoid colon diverticulosis identified Cystic structure identified in the right kidney measuring 1.9 cm slightly increased compared to prior exam where it measured 1.4 cm. Severe aortic atherosclerosis. Hernia surgical repair changes identified in the anterior abdomen. Small amount of fluid identified in the anterior abdominal wall likely postoperative seroma less prominent compared to prior exam. No evidence of intrarenal collecting system calculi or hydronephrosis. There is a 2.9 cm density identified in the inferior pole of the left kidney probably hyperdense cyst similar to prior exam from 2016. Moderate degenerative changes lumbar spine. IMPRESSION: 1. No acute intra-abdominal findings. 2. Mild increase in cystic structure identified in the right kidney probably known cyst. A 2.9 cm density identified in the inferior pole the left kidney is similar and stable since 2016 probably hyperdense cyst. Ultrasound kidneys can be considered. 3. Sigmoid colon diverticulosis. 4. Partially visualized focal consolidation identified in the right middle lobe of the lung with patchy bibasilar lung airspace opacities likely atelectasis or infiltrate. Follow-up to resolution Electronically signed by: Darryn Jefferson MD (09/01/2018 2:40 PM) [id number]
== END | disposition home or self-care (01) ==
LOC: PMG 13:21
PROVIDERS: ATTEND Family Medicine
DX: K57.30 Diverticulosis of large intestine without perforation or abscess without bleeding (principal); R91.8 Other nonspecific abnormal finding of lung field; I70.0 Atherosclerosis of aorta; I25.10 Atherosclerotic heart disease of native coronary artery without angina pectoris; K31.89 Other diseases of stomach and duodenum; Z90.49 Acquired absence of other specified parts of digestive tract
CPT/HCPCS: 74176

== ENCOUNTER 2018-09-06 00:13 | Emergency (ER) | payer MEDICARE ==
[~2018-09-06] VITALS: Ht 152.4 cm; Wt 88.5 kg
--- NOTE | 2018-09-06 00:38 | PHYS DOC ---
Past History Past Medical History: Anxiety, CAD, Diabetes, High Cholesterol, Heart Disease, Hypertension Past Surgical History: Coronary Bypass Surgery Smoking: Quit Greater Than 1 Year Alcohol Use: None Drug Use: None Adult General Chief Complaint Chief Complaint: ABDOMINAL PAIN HPI HPI 73-year-old female presents via EMS with left flank pain. Patient describes it as a intermittent crampy pain in the left flank that radiates around in the lower back in the lower abdomen. She denies any change in skin or rash. Patient had a CT scan on Tuesday and received the results today that showed bilateral renal cysts. The patient states she has had more flank pain yesterday and today. She was not given any pain medication by her PCP. She is very anxious about this cyst finding. Patient recently had a cardiac workup which was reportedly unremarkable. She denies fever or chills. Review of Systems Review of Systems Constitutional: Denies fever or chills [] Eyes: Denies change in visual acuity, redness, or eye pain [] HENT: Denies nasal congestion or sore throat [] Respiratory: Denies cough or shortness of breath [] Cardiovascular: No additional information not addressed in HPI [] GI: Denies abdominal pain, nausea, vomiting, bloody stools or diarrhea [] : Denies dysuria or hematuria [] Musculoskeletal: Left flank pain[] Integument: Denies rash or skin lesions [] Neurologic: Denies headache, focal weakness or sensory changes [] Endocrine: Denies polyuria or polydipsia [] All other systems were reviewed and found to be within normal limits, except as documented in this note. Allergies Allergies Allergies Coded Allergies Type Severity Reaction Last Updated Verified morphine Allergy Intermediate 08/11/18 Yes Physical Exam Physical Exam Constitutional: Well developed, obese, well nourished, no acute distress, non- toxic appearance. [] HENT: Normocephalic, atraumatic, bilateral external ears normal, oropharynx moist, no oral exudates, nose normal. [] Eyes: PERRLA, EOMI, conjunctiva normal, no discharge. [] Neck: Normal range of motion, no tenderness, supple, no stridor. [] Cardiovascular:Heart rate regular rhythm, no murmur [] Lungs & Thorax: Bilateral breath sounds clear to auscultation [] Abdomen: Bowel sounds normal, soft, no tenderness, no masses, no pulsatile masses. [] Skin: Warm, dry, no erythema, no rash. [] Back: No tenderness, no CVA tenderness. [] Extremities: No tenderness, no cyanosis, no clubbing, ROM intact, 2+ pitting edema up to the knees. [] Neurologic: Alert and oriented X 3, normal motor function, normal sensory function, no focal deficits noted. [] Psychologic: Affect normal, judgement normal, mood anxious. [] Current Patient Data Vital Signs Vital Signs Date Time Temp Pulse Resp B/P (MAP) Pulse Ox O2 Delivery O2 Flow Rate FiO2 09/06/18 00:30 98.4 97 20 96 Room Air EKG EKG [] Radiology/Procedures Radiology/Procedures [] Impressions: EXAM: CHEST 1 VIEW History: Shortness of breath COMPARISON: 08/09/2018 TECHNIQUE: Single portable radiograph of the chest FINDINGS: Low lung volumes and technique accentuates heart size and pulmonary vascular identified. Mild cardiomegaly. Median sternotomy wires identified Mild bibasilar lung airspace opacity likely atelectasis or infiltrates. Mild prominent bilateral interstitial lung markings. IMPRESSION: 1. Mild congestive changes. 2. Mild bibasilar lung airspace opacities likely atelectasis or infiltrates. Electronically signed by: Darryn Jefferson MD (09/06/2018 1:28 AM) [id number] DICTATED AND SIGNED BY: DARRYN JEFFERSON MD DATE: 09/06/18 0127 CC: WEN ROSEN DO; JERAMY SÁNCHEZ MD ~ Course & Med Decision Making Course & Med Decision Making Pertinent Labs and Imaging studies reviewed. (See chart for details) The patient's CT scan from 4 days ago shows possible consolidation of the right middle lobe in addition to provide basilar atelectasis. The patient was not placed on antibiotics for pneumonia. Given his been 4 days, she has not had a fever, and she has no white count; it seems unlikely this is pneumonia. Patient' s chest x-ray and that I performed is similar to July 2018. The patient's creatinine is 1.9. Review of her chart shows a previous of 1.5. The BUN is similar to previous. I have given the patient 500 mL normal saline. ProBNP is elevated just under 300. I have advised that she discuss taking an extra dose of her Lasix tomorrow with her doctor. I am unsure why she is having pain. I mentioned that the patient should watch out for any signs of rash as sometimes shingles can present in this fashion. She is stable for discharge. I will discharge her with a short course of [place] 5/325. [] Dragon Disclaimer Dragon Disclaimer This electronic medical record was generated, in whole or in part, using a voice recognition dictation system. Departure Departure: Impression: Primary Impression: Left flank pain Additional Impression: Renal cyst Disposition: HOME, SELF-CARE Condition: STABLE Referrals: JERAMY SÁNCHEZ MD (PCP) Patient Instructions: Flank Pain, Iyxy-dy-Fwpm Scripts Hydrocodone Bit/Acetaminophen (NORCO 5-325 TABLET) 1 Each Tablet 1 TAB PO PRN Q6HRS PRN for PAIN, #10 TAB 0 Refills Prov: WEN ROSEN DO 09/06/18 Problem Qualifiers WEN ROSEN DO Sep 06, 2018 00:38
[2018-09-06] MEDS: ONDANSETRON PF 4 MG/2 ML VIAL. IV ONE (00:49)
[2018-09-06] MEDS: LORazepam 2 MG/ML VIAL IV ONE (00:49)
[2018-09-06] MEDS: fentaNYL PF 250 MCG/5 ML VIAL IV ONE (00:49)
[2018-09-06 01:05] LABS: BASO # 0.1 x10^3/uL (0.0-0.2); BASO % 1 % (0-3); EOS # 0.2 x10^3/uL (0.0-0.7); EOS % 2 % (0-3); HEMATOCRIT 36.9 % (36.0-47.0); HEMOGLOBIN 12.5 g/dL (12.0-15.5); LYMPH # 1.1 x10^3/uL (1.0-4.8); LYMPH % 12 % (24-48); MEAN CORPUSCULAR HEMOGLOBIN 31 pg (25-35); MEAN CORPUSCULAR HGB CONC 34 g/dL (31-37); MEAN CORPUSCULAR VOLUME 91 fL (79-100); MONO # 0.9 x10^3/uL (0.0-1.1); MONO % 10 % (0-9); NEUT # 7.1 x10^3uL (1.8-7.7); NEUT % 76 % (31-73); PLATELET COUNT 241 x10^3/uL (140-400); RED BLOOD COUNT 4.08 x10^6/uL (3.50-5.40); RED CELL DISTRIBUTION WIDTH 14.7 % (11.5-14.5); WHITE BLOOD COUNT 9.4 x10^3/uL (4.0-11.0)
[2018-09-06 01:16] LABS: ALBUMIN 3.5 g/dL (3.4-5.0); ALBUMIN/GLOBULIN RATIO 1.1 (1.0-1.7); CALCIUM 9.2 mg/dL (8.5-10.1); CREATININE 1.9 mg/dL (0.6-1.0); GFR 25.8; POTASSIUM 4.9 mmol/L (3.5-5.1); TOTAL BILIRUBIN 0.2 mg/dL (0.2-1.0); TOTAL PROTEIN 6.8 g/dL (6.4-8.2)
--- NOTE | 2018-09-06 01:33 | RAD ---
EXAM: CHEST 1 VIEW History: Shortness of breath COMPARISON: 08/09/2018 TECHNIQUE: Single portable radiograph of the chest FINDINGS: Low lung volumes and technique accentuates heart size and pulmonary vascular identified. Mild cardiomegaly. Median sternotomy wires identified Mild bibasilar lung airspace opacity likely atelectasis or infiltrates. Mild prominent bilateral interstitial lung markings. IMPRESSION: 1. Mild congestive changes. 2. Mild bibasilar lung airspace opacities likely atelectasis or infiltrates. Electronically signed by: Darryn Jefferson MD (09/06/2018 1:28 AM) [id number]
[2018-09-06] MEDS ORDERED: HYDR-3165 PO (01:40)
[2018-09-06] MEDS: IV NORMAL SALINE 500ML 500 ML IV ONE (01:42)
[2018-09-06] MEDS: HYDROcodone/APAP 5/325MG 1 TAB TABLET PO ONE (02:15)
[2018-09-06 02:16] VITALS: BP 126/61
== END 2018-09-06 02:51 | disposition home or self-care (01) ==
LOC: ER 00:13
DX: N28.1 Cyst of kidney, acquired (principal); F41.9 Anxiety disorder, unspecified; I25.810 Atherosclerosis of coronary artery bypass graft(s) without angina pectoris; E78.00 Pure hypercholesterolemia, unspecified; I11.9 Hypertensive heart disease without heart failure; Z87.891 Personal history of nicotine dependence; Z88.5 Allergy status to narcotic agent
CPT/HCPCS: 36415; 71045; 80053; 83880; 85025; 96374; 96375; 99284; J2060; J2405; J3010; J7040

== ENCOUNTER → 2018-09-29 | Outpatient (CLI) | payer MEDICARE ==
[2018-09-06 02:16] VITALS: BP 126/61
[~2018-09-29] MED LIST changes: +ATOR40TA59 PO; +HYDR-3165 PO; +INSU100V8 SQ; +LEVO137T3 PO; +LISI10TA2 PO; +MELO7.5T29 PO; +METF500T16 PO; +POTA10TA10 PO; +VALS80TA3 PO
--- NOTE | 2018-09-29 09:10 | RAD ---
EXAM: Left axillary sonogram. HISTORY: Left axillary swelling. TECHNIQUE: Sonographic imaging of the left axilla at the site of palpable concern was performed. COMPARISON: None. FINDINGS: There a few small benign-appearing left axillary lymph nodes, the largest of which measures 1.1 cm in long axis. This maintains a benign fatty hilum. No suspicious axillary lesion is seen. IMPRESSION: 1. No suspicious axillary lesion at the site of palpable concern. 2. Small benign-appearing axillary lymph nodes. Electronically signed by: Nicol Mcknight MD (09/29/2018 9:07 AM) [facility]
== END | disposition home or self-care (01) ==
LOC: US 07:36
PROVIDERS: ATTEND Physician Assistant
DX: M79.89 Other specified soft tissue disorders (principal)
CPT/HCPCS: 76882

== ENCOUNTER 2018-11-14 17:58 | Emergency (ER) | payer MEDICARE ==
[~2018-11-14] VITALS: Ht 152.4 cm; Wt 204.1 kg
[~2018-11-14 17:58] MED LIST changes: -MELO7.5T29 PO
--- NOTE | 2018-11-14 18:52 | PHYS DOC ---
Past History Past Medical History: Anxiety, CAD, Diabetes, High Cholesterol, Heart Disease, Hypertension Past Surgical History: Coronary Bypass Surgery Smoking: Quit Greater Than 1 Year Alcohol Use: None Drug Use: None Adult General Chief Complaint Chief Complaint: LOWER EXTREMITY SWELLING HPI HPI Patient is a 73-year-old female who presents with bilateral leg swelling for the past week or longer. Patient was seen 1 week ago by her primary care physician for this and was doubled on her Lasix dose, from 40-80 mg daily with no improvement. She also has worsening shortness of breath with exertion over this past week. Patient was seen by her primary care team this morning and reportedly has something going on with her right lung. Patient denies any chest pain or palpitations. Denies any new orthopnea. She normally sits upright in a recliner for the past 16 years since her coronary artery bypass graft surgery, with no change. She also notes a new cough, over the past 4 days with this.[] Review of Systems Review of Systems Constitutional: Denies fever or chills [] Eyes: Denies change in visual acuity, redness, or eye pain [] HENT: Denies nasal congestion or sore throat [] Respiratory: See history of present illness[] Cardiovascular: Chest pain or palpitations[] GI: Denies abdominal pain, nausea, vomiting, bloody stools or diarrhea [] : Denies dysuria or hematuria [] Musculoskeletal: Denies back pain, see history of present illness[] Integument: Denies rash or skin lesions [] Neurologic: Denies headache, focal weakness or sensory changes [] Endocrine: Denies polyuria or polydipsia [] All other systems were reviewed and found to be within normal limits, except as documented in this note. Allergies Allergies Allergies Coded Allergies Type Severity Reaction Last Updated Verified morphine Allergy Intermediate 08/11/18 Yes Physical Exam Physical Exam Constitutional: Well developed, well nourished, no acute distress, non-toxic appearance. [] HENT: Normocephalic, atraumatic, bilateral external ears normal, oropharynx moist, no oral exudates, nose normal. [] Eyes: PERRLA, EOMI, conjunctiva normal, no discharge. [] Neck: Normal range of motion, no tenderness, supple, no stridor. [] Cardiovascular:Heart rate regular rhythm, no murmur [] Lungs & Thorax: Bilateral breath sounds clear to auscultation [] Abdomen: Bowel sounds normal, soft, no tenderness, no masses, no pulsatile masses. [] Skin: Warm, dry, no erythema, no rash. [] Back: No tenderness, no CVA tenderness. [] Extremities: No tenderness, no cyanosis, no clubbing, ROM intact, no edema. [] Neurologic: Alert and oriented X 3, normal motor function, normal sensory function, no focal deficits noted. [] Psychologic: Affect normal, judgement normal, mood normal. [] EKG EKG EKG shows a sinus rhythm at 97 bpm, normal axis, QTC of 474 ms, no ST elevations , no acute changes when compared with EKG of 08/09/2018. Interpreted by me at 1841[] Radiology/Procedures Radiology/Procedures CHEST PA LATERAL CLINICAL INDICATION: COUGH, SHORTNESS OF BREATH, COPD
HX SMOKER, QUIT X 4 YRS AGO COMPARISON: Study from the same day earlier FINDINGS: CABG changes noted. Heart is moderately enlarged in size. Lungs are hyperinflated. Bibasilar patchy opacities are seen. Diffuse bilateral prominent bronchial markings. No pneumothorax. No pleural effusion. Visualized bony thorax is within normal limits. IMPRESSION: Bibasilar patchy opacities may be secondary to pneumonia or atelectasis. COPD.[] Course & Med Decision Making Course & Med Decision Making Pertinent Labs and Imaging studies reviewed. (See chart for details) ED course and medical decision making: Patient arrived, was placed in bed, and tolerated exam well. She is transferred to and from x-ray without any complications. X-ray findings are noted above. Repeat x-ray was performed due to inability within our system to find and obtain her x-ray from earlier today. She was given an additional dose of IV Lasix. There is no evidence of congestive heart failure affecting the lungs at this time. Believe this to be most likely due to atelectasis based on x-ray findings and her history. Given that her BNP is normal and cardiac enzymes are negative do not see this as evidence of an acute coronary syndrome. We will prescribe compression socks to help with the swelling. Believe the patient is stable for outpatient further evaluation. Discussed findings and plan with patient who voiced understanding. All questions were answered. Patient was discharged in improved condition[] Dragon Disclaimer Dragon Disclaimer This electronic medical record was generated, in whole or in part, using a voice recognition dictation system. Departure Departure: Impression: Primary Impression: Peripheral edema Additional Impression: Renal insufficiency Disposition: 01 HOME, SELF-CARE Condition: IMPROVED Referrals: JERAMY SÁNCHEZ MD (PCP) Follow-up in 2 days Patient Instructions: Peripheral Edema Additional Instructions: Follow-up with your regular doctor in 2 days. Obtain the outpatient echocardiogram as arranged by your primary care team. Wear compression socks while you are up and about for the day, take them off at bedtime. Return to the ER if worsening difficulty breathing or any other concerns. Scripts Meloxicam (MELOXICAM) 7.5 Mg Tablet 7.5 MG PO DAILY for PAIN, #20 TAB Prov: AFTAB CAMP DO 11/14/18 Problem Qualifiers AFTAB CAMP DO Nov 14, 2018 18:52
[2018-11-14] MEDS ORDERED: ASPIRIN 81 MG TAB.CHEW PO ONE (19:00)
[2018-11-14] MEDS ORDERED: FUROSEMIDE 40 MG/4 ML VIAL IVP ONE (19:00)
--- NOTE | 2018-11-14 20:02 | RAD ---
CHEST PA LATERAL CLINICAL INDICATION: COUGH, SHORTNESS OF BREATH, COPD
HX SMOKER, QUIT X 4 YRS AGO COMPARISON: Study from the same day earlier FINDINGS: CABG changes noted. Heart is moderately enlarged in size. Lungs are hyperinflated. Bibasilar patchy opacities are seen. Diffuse bilateral prominent bronchial markings. No pneumothorax. No pleural effusion. Visualized bony thorax is within normal limits. IMPRESSION: Bibasilar patchy opacities may be secondary to pneumonia or atelectasis. COPD. Electronically signed by: Peter Collins DO (11/14/2018 7:59 PM) [facility]
[2018-11-14 20:03] LABS: BILIRUBIN,URINE NEG (NEG); CLARITY,URINE CLOUDY; COLOR,URINE YELLOW; GLUCOSE,URINE NEG (NEG); NITRITE,URINE NEG (NEG); UROBILINOGEN,URINE 0.2 mg/dL (0.2 mg/dL)
[2018-11-14 20:03] LABS: BASO % 1 % (0-3); EOS # 0.2 x10^3/uL (0.0-0.7); EOS % 3 % (0-3); HEMATOCRIT 39.5 % (36.0-47.0); LYMPH % 13 % (24-48); MEAN CORPUSCULAR HEMOGLOBIN 30 pg (25-35); MEAN CORPUSCULAR HGB CONC 33 g/dL (31-37); MEAN CORPUSCULAR VOLUME 91 fL (79-100); MONO # 0.9 x10^3/uL (0.0-1.1); MONO % 12 % (0-9); NEUT # 5.6 x10^3uL (1.8-7.7); NEUT % 71 % (31-73); PLATELET COUNT 231 x10^3/uL (140-400); RED BLOOD COUNT 4.37 x10^6/uL (3.50-5.40); RED CELL DISTRIBUTION WIDTH 14.1 % (11.5-14.5); WHITE BLOOD COUNT 7.8 x10^3/uL (4.0-11.0)
[2018-11-14 20:04] LABS: BACTERIA,URINE 0 /HPF (0-FEW); RBC,URINE 0 /HPF (0-2); SQUAMOUS EPITHELIAL CELL,UR OCC /LPF
[2018-11-14 21:01] LABS: ALBUMIN/GLOBULIN RATIO 0.8 (1.0-1.7); CALCIUM 9.4 mg/dL (8.5-10.1); CREATININE 2.1 mg/dL (0.6-1.0); POTASSIUM 4.4 mmol/L (3.5-5.1); TOTAL BILIRUBIN 0.3 mg/dL (0.2-1.0); TOTAL PROTEIN 6.9 g/dL (6.4-8.2)
[2018-11-14 21:03] VITALS: BP 99/53
[2018-11-14] MEDS ORDERED: MELO7.5T29 PO (21:10)
--- NOTE | 2018-11-14 23:08 | EKG ---
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
== END 2018-11-14 21:30 | disposition home or self-care (01) ==
LOC: ER 17:58
DX: R60.0 Localized edema (principal); R06.02 Shortness of breath; N28.9 Disorder of kidney and ureter, unspecified; F41.9 Anxiety disorder, unspecified; I25.810 Atherosclerosis of coronary artery bypass graft(s) without angina pectoris; E11.9 Type 2 diabetes mellitus without complications; E78.00 Pure hypercholesterolemia, unspecified; I11.9 Hypertensive heart disease without heart failure; Z87.891 Personal history of nicotine dependence; Z88.5 Allergy status to narcotic agent
CPT/HCPCS: 36415; 71046; 80053; 81001; 83735; 83880; 84484; 85025; 85610; 87086; 93005; 96374; 99284; J1940

== ENCOUNTER → 2018-11-14 | Outpatient (CLI) | payer MEDICARE ==
[~2018-11-14] MED LIST changes: -ATOR40TA59 PO; -INSU100V8 SQ; -LEVO137T3 PO; -LISI10TA2 PO; -METF500T16 PO; -POTA10TA10 PO; -VALS80TA3 PO
--- NOTE | 2018-11-14 08:46 | RAD ---
Chest, 2 views, 11/14/2018: HISTORY: Cough Comparison is made to a study from 09/06/2018. There has been a previous median sternotomy. There are prominent epicardial fat pads obscuring the cardiac margins. The heart appears to be at the upper limits of normal in size. There are streaky bibasilar opacities compatible with atelectasis/infiltrate and/or scarring. Similar findings were evident on the CT study 09/01/2018. The upper lung rodriguez are clear. There is no evidence of pleural fluid. Moderate spurring is present in the spine. IMPRESSION: Moderate ongoing or recurrent streaky bibasilar atelectasis/infiltrate and/or scarring. Electronically signed by: Dave Pang MD (11/14/2018 8:43 AM) [facility]
== END | disposition home or self-care (01) ==
LOC: RAD 08:06
PROVIDERS: ATTEND Physician Assistant Medical
DX: J98.11 Atelectasis (principal); R91.8 Other nonspecific abnormal finding of lung field; R53.83 Other fatigue
CPT/HCPCS: 71046

== ENCOUNTER → 2018-11-17 | Outpatient (CLI) | payer MEDICARE ==
[2018-11-14 21:03] VITALS: BP 99/53
[~2018-11-17] MED LIST changes: +MELO7.5T29 PO
--- NOTE | 2018-11-17 16:31 | RAD ---
Thoracic spine, 3 views, 11/17/2018: HISTORY: Mid back pain The bony structures are demineralized. There is moderate multilevel degenerative change with scattered marginal spurs. These degenerative changes extend into the cervical spine. No fracture or subluxation is evident. Extensive aortic calcific plaquing is noted. IMPRESSION: 1. Demineralization. 2. Moderate multilevel degenerative change. 3. No acute bony abnormality is detected. Electronically signed by: Dave Pang MD (11/17/2018 4:29 PM) [facility]
== END | disposition home or self-care (01) ==
LOC: PMG 10:25
PROVIDERS: ATTEND Registered Nurse
DX: M47.814 Spondylosis without myelopathy or radiculopathy, thoracic region (principal)
CPT/HCPCS: 72072

== ENCOUNTER → 2018-11-28 | Outpatient (CLI) | payer MEDICARE ==
[2018-11-14 21:03] VITALS: BP 99/53
--- NOTE | 2018-11-28 13:54 | RAD ---
EXAM: Dual energy x-ray absorptiometry (DEXA). HISTORY: Postmenopausal female presents for osteoporosis screening. COMPARISON: None. TECHNIQUE: Dual energy x-ray absorptiometry of the lumbar spine and right hip was performed. Calculation of bone mineral density based on standard deviations above or below the expected young adult normal value (T-score) was completed. FINDINGS: The average bone mineral density in the 1st through 4th lumbar vertebrae is 1.022 g/cmxcm, corresponding with a T-score of -1.3. The average total bone mineral density in the right hip is 0.839 g/cmxcm, corresponding with a T-score of -0.9. The bone mineral density localized to the femoral neck corresponds with a T-score of -2.0. IMPRESSION: 1. Osteopenia measured at the lumbar spine and the right femoral neck. 2. Normal bone mineral density measured for the total right hip. Note: Definitions established by the World Health Organization: 1. Normal: T-score is -1.0 or above. 2. Osteopenia: T-score is between -1.0 and -2.5 . 3. Osteoporosis: T-score is -2.5 or below. Electronically signed by: Nicol Mcknight MD (11/28/2018 1:51 PM) [id number]
== END | disposition home or self-care (01) ==
LOC: DXRAD 09:20
PROVIDERS: ATTEND Family Medicine
DX: M85.88 Other specified disorders of bone density and structure, other site (principal); Z78.0 Asymptomatic menopausal state
CPT/HCPCS: 77080

== ENCOUNTER → 2018-12-04 | Outpatient (CLI) | payer MEDICARE ==
[2018-11-14 21:03] VITALS: BP 99/53
[~2018-12-04] MED LIST changes: +IOHEXOL 240 MG/ML 50ML VIAL. ONE
--- NOTE | 2018-12-04 12:29 | RAD ---
Examination: CT ABDOMEN PELVIS WO CONTRAST History: Lower abdominal and pelvic pain. HX hernia surgery 2009 with mesh at umbilicus. GB,APPDX removed ,complete hysterectomy. ORAL only 30ml OMNI 240 in 12 oz Breeza
Comparison/Correlation: 09/01/2018 CT abdomen and pelvis without contrast Findings: Axial images of the abdomen and pelvis were obtained following oral contrast administration. Sagittal and coronal reformatted images provided. Minimal right medial basilar middle lobe atelectatic consolidation is unchanged measuring up to 2.2 cm x 2 cm..Minimal lingular and left upper lobe atelectasis noted. Coronary arterial calcification noted. Mitral annular calculation is noted. Cholecystectomy noted. Unenhanced liver and spleen are unremarkable. Adrenal glands are normal. Pancreas is unremarkable. Right renal cyst is present. Lobulated process along the inferior margin of the left kidney has remained stable and has also is of up to 37. This measures up to 2.3 cm transverse by 1.2 cm longitudinal by 1.7 cm anteroposterior. No radiopaque collecting system calculi. Moderate quantity of stool in the colon noted. Infraumbilical abdominal wall mesh is noted. No inflammatory changes about the cecum. Suture material involving the rectosigmoid junction noted. No enlarged abdominal or pelvic lymph nodes. Severe L5/S1 disc space narrowing is present. Moderate L4-5 disc space narrowing is present. Hysterectomy. Significant calcific involvement of the abdominal aorta and iliac arteries noted. Infrarenal abdominal aortic aneurysm is fusiform measuring up to 3 cm matter. Impression: Right middle lobe atelectatic consolidation adjacent to the anterior mediastinal fat. It has remained unchanged. Further evaluation with CT chest with contrast is recommended if able for more complete assessment and to assess for possibility of underlying mass lesion. Left renal intermediate density structure along the inferior margin has remained stable compared to 09/01/2018. Mass lesion is not excluded. Consider contrast-enhanced renal CT exam for further assessment. Diverticulosis. Infrarenal abdominal aortic aneurysm. PQRS Compliance Statement: One or more of the following individualized dose reduction techniques were utilized for this examination: 1. Automated exposure control 2. Adjustment of the mA and/or kV according to patient size 3. Use of iterative reconstruction technique Electronically signed by: Vinny Mendez MD (12/04/2018 12:26 PM) [facility]
== END | disposition home or self-care (01) ==
LOC: CT 07:31
PROVIDERS: ATTEND Family Medicine
DX: K57.30 Diverticulosis of large intestine without perforation or abscess without bleeding (principal); I71.4 Abdominal aortic aneurysm, without rupture; N28.1 Cyst of kidney, acquired; J98.11 Atelectasis; I25.10 Atherosclerotic heart disease of native coronary artery without angina pectoris; M48.07 Spinal stenosis, lumbosacral region; Z90.49 Acquired absence of other specified parts of digestive tract; Z90.710 Acquired absence of both cervix and uterus
CPT/HCPCS: 74176

== ENCOUNTER 2019-02-27 10:30 | Inpatient (IN) | payer MEDICARE ==
[~2019-02-27] VITALS: Ht 152.4 cm; Wt 89.9 kg
[~2019-02-27 10:30] MED LIST changes: -ATOR40TA59 PO; -INSU100V8 SQ; -LEVO137T3 PO; -LISI10TA2 PO; -METF500T16 PO; -POTA10TA10 PO; -VALS80TA3 PO
[2019-02-27 11:02] VITALS: BP 152/87
[2019-02-27] MEDS ORDERED: FUROSEMIDE 40 MG/4 ML VIAL IVP ONE (12:00)
[2019-02-27] MEDS ORDERED: LEVO137T3 PO (12:39)
[2019-02-27] MEDS ORDERED: METF500T16 PO (12:39)
[2019-02-27] MEDS ORDERED: INSU100V8 SQ (12:39)
[2019-02-27] MEDS ORDERED: LISI10TA2 PO (12:39)
--- NOTE | 2019-02-27 12:42 | HP ---
ADMIT DATE: ATTENDING PHYSICIAN: Bhavani Mahoney MD CHIEF COMPLAINT: Swelling of legs and shortness of breath. HISTORY OF PRESENT ILLNESS: The patient, age 73, is admitted as a direct admission from the office. She has had a gradual 2-day history of increasing shortness of breath, congestion, some orthopnea and swelling of her ankle to the point that she cannot put her shoes on. She has a recent diagnosis of a cardiomyopathy and congestive heart failure. 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 She is on a daily dose of diuretics, 40 mg of Lasix daily. She is also taking meloxicam, which can cause fluid retention. She had no concept of limitation of fluid. She drinks a lot of fluids and the water. Therefore, her ankles are swollen and her x-ray shows vascular congestion. She is admitted to the hospital then for an exacerbation of CHF with symptomatic edema and the congestion. PAST MEDICAL HISTORY: Significant for essential hypertension, type 2 diabetes, hypothyroidism, degenerative arthritis and hyperlipidemia. I am unclear as to what previous cardiac evaluation she has had and she is unclear. CURRENT MEDICATIONS: Reviewed. She takes albuterol, aspirin, Lasix, Neurontin, glipizide, hydrocodone, insulin Lantus and regular, Synthroid 175 mcg daily, lisinopril, meloxicam, nystatin, Crestor and Valtrex. I am in the process of tracking down her last echocardiogram. FAMILY HISTORY: Noncontributory. REVIEW OF SYSTEMS: Significant for the dyspnea with minimal exertion, swelling, increased fluid intake. She denied any fevers, chills, palpitations, chest pain or dysuria. All other systems reviewed and determined to be negative. ALLERGIES: She has allergies to MORPHINE, causing nausea. PHYSICAL EXAMINATION: GENERAL: When I saw her, this is a pleasant, alert, elderly female in no acute distress. INITIAL VITAL SIGNS: Today showed a blood pressure of 152/87, pulse was 82 and regular. She was afebrile. HEENT: Head is without trauma. The pupils are reactive. Sclerae are nonicteric. Oropharynx clear. NECK: Veins were distended at 45 degrees. LUNGS: Bibasilar crackles, minimum. No wheezing. CARDIOVASCULAR: Showed distant heart tones. No obvious gallops. Peripheral pulses are palpable and full. ABDOMEN: Soft, obese, protuberant. No organomegaly. Bowel sounds were hypoactive. EXTREMITIES: Showed 3+ pitting edema extending up to her thighs. No cyanosis. NEUROLOGIC: Findings focally intact. No lymphadenitis. LABORATORY DATA: Chemistries have been ordered. Chest x-ray pending. ASSESSMENT: 1. A 73-year-old female with known cardiomyopathy. 2. Exacerbation of congestive heart failure. 3. Pedal edema. 4. Vascular congestion. 5. Type 2 diabetes mellitus. 6. Essential hypertension. 7. Hyperlipidemia. PLAN: 1. Admit to the inpatient unit. 2. Lasix has been increased from 40 mg daily to 80 mg IV twice a day. 3. Daily weights. 4. 1200 mL daily fluid restriction. 5. Serial chemistries. 6. Continue home meds. 7. Given her blood pressure, we can increase her afterload reduction during this hospitalization. BHAVANI MAHONEY MD DR: CORNELIO/sherman JOB#: [id number] / [id number] CASSANDRA Valladares
[2019-02-27] MEDS ORDERED: POTA10TA10 PO (14:12)
[2019-02-27] MEDS ORDERED: ATOR40TA59 PO (14:12)
[2019-02-27] MEDS ORDERED: VALS80TA3 PO (14:12)
[2019-02-27 14:34] VITALS: BP 119/74
[2019-02-27] MEDS: GABAPENTIN 100 MG CAPSULE. PO SCH ×2 (15:34→21:16)
[2019-02-27] MEDS: metFORMIN 500 MG TABLET PO SCH (17:09)
[2019-02-27] MEDS: INSULIN LISPRO 300 UNITS/3 ML INSULN.PEN. SQ SCH (17:10)
[2019-02-27] MEDS ORDERED: NON FORMULARY ITEM (Albuterol Sulfate (Albuterol Sulfate Neb Soln) 1 VIAL) NEB SCH (18:00)
[2019-02-27] MEDS: ALBUTEROL SULFATE 2.5 MG/3 ML NEBU. NEB SCH ×2 (18:16→20:23)
[2019-02-27 20:24] VITALS: BP 116/65
[2019-02-27] MEDS: LISINOPRIL 10 MG TABLET PO SCH (21:16)
[2019-02-27] MEDS: ATORVASTATIN CALCIUM 20 MG TABLET PO SCH (21:16)
[2019-02-27] MEDS: FUROSEMIDE 40 MG/4 ML VIAL IVP SCH (21:17)
[2019-02-27] MEDS: INSULIN GLARGINE 300 UNITS/3 ML INSULN.PEN. SQ SCH (21:18)
[2019-02-27 23:27] VITALS: BP 104/53
[2019-02-28] VITALS (8 sets, daily range): BP systolic 92–124; BP diastolic 59–73
[2019-02-28] MEDS: LEVOTHYROXINE 137 MCG TABLET PO SCH (05:45)
[2019-02-28] MEDS: ALBUTEROL SULFATE 2.5 MG/3 ML NEBU. NEB SCH ×4 (06:00→20:01)
[2019-02-28 06:25] LABS: CALCIUM 9.3 mg/dL (8.5-10.1); CREATININE 1.8 mg/dL (0.6-1.0); GFR 27.5; POTASSIUM 4.1 mmol/L (3.5-5.1)
[2019-02-28] MEDS: ASPIRIN 81 MG TAB.CHEW PO SCH (08:21)
[2019-02-28] MEDS: metFORMIN 500 MG TABLET PO SCH (08:21)
[2019-02-28] MEDS: INSULIN LISPRO 300 UNITS/3 ML INSULN.PEN. SQ SCH ×3 (08:21→17:04)
[2019-02-28] MEDS: POTASSIUM CHLORIDE 20 MEQ TABLET.ER. PO SCH (08:24)
[2019-02-28] MEDS ORDERED: BETAMETHASONE DIPROP 0.05% TP SCH (09:00)
[2019-02-28] MEDS: FUROSEMIDE 40 MG/4 ML VIAL IVP SCH ×2 (09:48→20:55)
[2019-02-28] MEDS: GABAPENTIN 100 MG CAPSULE. PO SCH ×3 (09:48→20:53)
[2019-02-28] MEDS: GLIMEPIRIDE 2 MG TABLET PO SCH (09:48)
[2019-02-28] MEDS: LISINOPRIL 10 MG TABLET PO SCH ×2 (10:30→20:55)
[2019-02-28] MEDS: LOSARTAN 50 MG TABLET. PO SCH (10:30)
[2019-02-28] MEDS: CLOBETASOL EMOLLIENT 0.05% TOPICAL CREAM 15GM TUBE. TP SCH ×2 (11:46→20:53)
--- NOTE | 2019-02-28 13:59 | CARD ---
MR#: [id number] Date of Study: 02/28/2019 Ordering Physician: BHAVANI MAHONEY, Referring Physician: BHAVANI MAHONEY, Tech: Mylene Gurrola RDCS APPROVED REPORT EXAM: Two-dimensional and M-mode echocardiogram with Doppler and color Doppler. Other Information Quality : Technically LimitedHR: 89bpm Rhythm : NSRTechnically limited study due to body habitus and CABG. INDICATION Congestive Heart Failure 2D DIMENSIONS RVDd2.9 (2.9-3.5cm)Left Atrium(2D)3.4 (1.6-4.0cm) IVSd1.5 (0.7-1.1cm)Aortic Root(2D)2.9 (2.0-3.7cm) LVDd4.1 (3.9-5.9cm)LVOT Diameter2.0 (1.8-2.4cm) PWd1.2 (0.7-1.1cm)LVDs2.8 (2.5-4.0cm) FS (%) 32.4 %SV44.7 ml LVEF(%)61.1 (>50%) M-Mode DIMENSIONS Left Atrium(MM)3.72 (2.5-4.0cm)Aortic Root3.33 (2.2-3.7cm) Aortic Valve AoV Peak Topher.111.1cm/sAoV VTI24.6cm AO Peak GR.4.9mmHgLVOT Peak Topher.108.0cm/s LVOT VTI 22.87cmAO Mean GR.3mmHg JONATHAN (VMAX)2.40si4QUG (VTI)2.82cm2 Mitral Valve MV E Zzktnjrq044.4cm/sMV E Peak Gr.7mmHg MV DECEL IHOZ598cmNE A Aizlkcpi774.6cm/s MV E Mean Gr.3mmHgE/A Ratio0.8 Pulmonary Valve PV Peak Cvrvdrzg228.9cm/sPV Peak Grad.6mmHg LEFT VENTRICLE The left ventricle is normal size. There is moderate concentric left ventricular hypertrophy. The lef t ventricular systolic function is normal. The Ejection Fraction is 60-65%. There is normal LV segmen ezekiel wall motion. Transmitral Doppler flow pattern is Grade I-abnormal relaxation pattern. RIGHT VENTRICLE The right ventricle is normal size. There is normal right ventricular wall thickness. The right ventr icular systolic function is normal. ATRIA The left atrium size is normal. The right atrium size is normal. The interatrial septum is intact wit h no evidence for an atrial septal defect or patent foramen ovale as noted on 2-D or Doppler imaging. AORTIC VALVE The aortic valve is normal in structure and function. The aortic valve is trileaflet. Doppler and Col or Flow revealed no significant aortic regurgitation. There is no significant aortic valvular stenosi s. There is no aortic valvular vegetation. MITRAL VALVE The mitral valve is normal in structure and function. There is no evidence of mitral valve prolapse. There is no mitral valve stenosis. Doppler and Color-flow revealed trace mitral regurgitation. TRICUSPID VALVE The tricuspid valve is normal in structure and function. Doppler and Color Flow revealed no tricuspid valve regurgitation noted. There is no tricuspid valve prolapse or vegetation. There is no tricuspid valve stenosis. PULMONIC VALVE The pulmonic valve is not well visualized. GREAT VESSELS The aortic root is normal in size. The ascending aorta is normal in size. The IVC was not visualized. PERICARDIAL EFFUSION There is no evidence of significant pericardial effusion. Critical Notification Critical Value: No <Conclusion> The left ventricular systolic function is normal. The Ejection Fraction is 60-65%. There is normal LV segmental wall motion. Transmitral Doppler flow pattern is Grade I-abnormal relaxation pattern. Doppler and Color-flow revealed trace mitral regurgitation. There is no evidence of significant pericardial effusion. Signed by : Ector Garcia, Electronically Approved : 02/28/2019 13:58:42
[2019-02-28] MEDS: INSULIN GLARGINE 300 UNITS/3 ML INSULN.PEN. SQ SCH (20:53)
[2019-02-28] MEDS: ATORVASTATIN CALCIUM 20 MG TABLET PO SCH (20:53)
--- NOTE | 2019-03-01 02:21 | PN ---
DATE: 02/28/2019 ATTENDING PHYSICIAN: Dr. Mahoney CHIEF COMPLAINT: Swelling and shortness of breath. SUBJECTIVE: Doing well, no further symptoms. Swelling is down. Weight is down about 4 kilograms. OBJECTIVE: Her creatinine this morning is 1.8 mg percent. A followup chemistry is pending tomorrow. She has responded well to the Lasix. Her blood pressure is 124/67, pulse is 72 and regular. Nonfasting blood sugar is 139. Echocardiogram has been ordered and is pending at this time. PHYSICAL EXAMINATION: HEENT: Head is without trauma. Pupils are reactive. Sclerae nonicteric. Oropharynx clear. NECK: Supple. Neck veins were not distended. LUNGS: Otherwise, clear. CARDIOVASCULAR: Showed regular heart tones. No obvious gallops. Peripheral pulses are palpable. ABDOMEN: Obese, protuberant. No organomegaly. Bowel sounds were hypoactive. EXTREMITIES: Showed improvement and has residual 1+ edema. The pitting edema yesterday has improved. There is no cyanosis. NEUROLOGIC: Findings focally intact. Speech is fluent. SKIN: Warm and dry without any lymphangitis. ASSESSMENT: 1. A 73-year-old female with known cardiomyopathy. 2. Exacerbation with congestive heart failure. 3. Pedal edema, improved. 4. Vascular congestion on chest x-ray. 5. Type 2 diabetes. 6. Essential hypertension. 7. Hyperlipidemia. 8. Chronic kidney disease, probable stage 3. PLAN: 1. Continue Lasix diuresis. 2. Serial chemistry. 3. Fluid restriction with daily weights. 4. Increase lisinopril to maximize afterload reduction. 5. Diuresis for preload reduction. BHAVANI MAHONEY MD DR: CORNELIO/sherman JOB#: [id number] / [id number] CASSANDRA Valladares
[2019-03-01 05:39] VITALS: BP 120/67
[2019-03-01 05:55] LABS: CALCIUM 8.9 mg/dL (8.5-10.1); CREATININE 2.5 mg/dL (0.6-1.0); GFR 18.8; POTASSIUM 4.5 mmol/L (3.5-5.1)
[2019-03-01] MEDS: LEVOTHYROXINE 137 MCG TABLET PO SCH (05:59)
[2019-03-01] MEDS: ALBUTEROL SULFATE 2.5 MG/3 ML NEBU. NEB SCH (06:30)
[2019-03-01] MEDS: INSULIN LISPRO 300 UNITS/3 ML INSULN.PEN. SQ SCH (07:30)
[2019-03-01] MEDS: POTASSIUM CHLORIDE 20 MEQ TABLET.ER. PO SCH (08:18)
[2019-03-01] MEDS: ASPIRIN 81 MG TAB.CHEW PO SCH (08:18)
[2019-03-01] MEDS: CLOBETASOL EMOLLIENT 0.05% TOPICAL CREAM 15GM TUBE. TP SCH (08:19)
[2019-03-01] MEDS: GLIMEPIRIDE 2 MG TABLET PO SCH (08:19)
[2019-03-01] MEDS: GABAPENTIN 100 MG CAPSULE. PO SCH (08:19)
[2019-03-01] MEDS: LISINOPRIL 10 MG TABLET PO SCH (08:19)
[2019-03-01] MEDS: LOSARTAN 50 MG TABLET. PO SCH (08:19)
[2019-03-01] MEDS: FUROSEMIDE 40 MG/4 ML VIAL IVP SCH (09:04)
[2019-03-01 10:00] VITALS: BP 106/68
--- NOTE | 2019-03-01 10:32 | DS ---
DATE OF DISCHARGE: 03/01/2019 FINAL DISCHARGE DIAGNOSES: 1. Exacerbation of congestive heart failure. 2. Diastolic dysfunction. 3. Pedal edema, improved. 4. Vascular congestion, improved. 5. Type 2 diabetes mellitus. 6. Essential hypertension. 7. Chronic kidney disease, stage 3. HISTORY OF PRESENT ILLNESS: The patient is a pleasant 73-year-old female with symptoms of volume overload and congestive heart failure. She has been on Lasix. She has had a 2-day history of increasing shortness of breath, congestion, orthopnea and swelling of the ankle to the point she cannot put her shoes on. PHYSICAL EXAMINATION: Please see the dictated note. PERTINENT LABORATORY AND X-RAY STUDIES: On this admission, her baseline creatinine is 1.9 mg/dL; with followup diuresis, it did go to 2.5 mg/dL with a BUN of 52. She needs this degree of creatinine to augment her diuresis. Nonfasting blood sugar in the low 100s. Her potassium is maintained at 4.5 mEq. The patient had an echocardiogram done on this admission in addition to her chest x-ray. The echocardiogram showed a preserved ventricular ejection fraction of 60% and no valvular disease noted. She probably has diastolic dysfunction. Chest x-ray showed vascular congestion and borderline cardiomegaly. COURSE IN HOSPITAL: The patient was admitted to the hospital. She was placed on diuretics with increased Lasix to twice a day. She did well. From her clinical status, she was breathing better. She did not require any supplemental oxygen. Room air saturations were 90%. We will follow daily chemistries, BUN and electrolytes. Her potassium remained stable. Her creatinine is slightly elevated from her baseline. She is not symptomatic regarding this. On the third hospital day, she was doing better. Weight was down, but not too accurate in terms of documentation. Therefore, she is discharged home with the following meds, Lasix increased to 80 mg daily. She will continue her albuterol, aspirin, Lipitor, Neurontin, Amaryl, hydrocodone p.r.n., Lantus and Regular insulin, Synthroid, lisinopril 10 mg b.i.d., potassium and valsartan doses are unchanged. For now, I took the liberty of stopping 2 meds. I recommend that she stop her meloxicam because it has fluid retention properties. In addition, because of the increased creatinine and decreased renal function, I stopped her metformin. I suggested a followup visit with Stephanie Chapman in 1 week and recheck her chemistry, BUN, creatinine and electrolytes. I recommended that she get a set of bathroom scales and weigh herself every day and try to keep within an hour range of plus or minus 1 pound. I went in explicit detail I think she is comprehensive whether or not she will follow through remains to be seen. The patient was then discharged from our hospital in stable condition with explicit instructions and followup care. TOTAL DISCHARGE TIME SPENT: 39 minutes. BHAVANI MAHONEY MD DR: CORNELIO/sherman JOB#: [id number] / [id number] STEPHANIE Valladares
== END 2019-03-01 10:40 | disposition home or self-care (01) | DRG 291 ==
LOC: 1 SOUTH 10:30
PROVIDERS: ADMIT Hospitalist; ATTEND Hospitalist
DX: I13.0 Hypertensive heart and chronic kidney disease with heart failure and stage 1 through stage 4 chronic kidney disease, or unspecified chronic kidney disease (principal); I50.33 Acute on chronic diastolic (congestive) heart failure; I42.9 Cardiomyopathy, unspecified; E11.22 Type 2 diabetes mellitus with diabetic chronic kidney disease; E78.5 Hyperlipidemia, unspecified; E03.9 Hypothyroidism, unspecified; N18.3 Chronic kidney disease, stage 3 (moderate); M19.90 Unspecified osteoarthritis, unspecified site
CPT/HCPCS: 36415; 80048; 82947; 93306; 94640; J1815; J1940; J7613

== ENCOUNTER → 2019-02-27 | Outpatient (CLI) | payer MEDICARE ==
[~2019-02-27] MED LIST changes: +ATOR40TA59 PO; +INSU100V8 SQ; -IOHEXOL 240 MG/ML 50ML VIAL. ONE; +LEVO137T3 PO; +LISI10TA2 PO; +METF500T16 PO; +POTA10TA10 PO; +VALS80TA3 PO
--- NOTE | 2019-02-27 09:55 | RAD ---
Ultrasound venous Doppler INDICATION:Left leg pain and swelling. TECHNIQUE: Grayscale, color Doppler and spectral waveform ultrasound images of the left lower extremity deep veins obtained. COMPARISON: None FINDINGS: The interrogated deep veins are compressible and demonstrate evidence of blood flow with normal respiratory variation and response to augmentation. IMPRESSION: No sonographic evidence of acute DVT of the left lower extremity deep veins. Electronically signed by: Peter Collins DO (02/27/2019 9:52 AM) [facility]
--- NOTE | 2019-02-27 15:56 | RAD ---
Chest, PA and Lateral: Technique: PA and lateral views of the chest were obtained. History: cardiomegaly. Comparison: 11/14/2018. Findings: Mild cardiomegaly. Median sternotomy wires identified. There is mild prominent appearing bilateral interstitial lung markings. Mild bibasilar lung airspace opacities. Moderate degenerative changes thoracic spine. IMPRESSION: 1. Probable mild congestive changes. 2. Mild bibasilar lung airspace opacities likely atelectasis or infiltrates. Electronically signed by: Darryn Jefferson MD (02/27/2019 3:53 PM) [facility]
== END | disposition home or self-care (01) ==
LOC: US 08:22
PROVIDERS: ATTEND Physician Assistant Medical
DX: I51.7 Cardiomegaly (principal); R91.8 Other nonspecific abnormal finding of lung field; M47.814 Spondylosis without myelopathy or radiculopathy, thoracic region
CPT/HCPCS: 71046; 93971

== ENCOUNTER → 2019-03-23 | Outpatient (CLI) | payer MEDICARE ==
[2019-03-01 10:00] VITALS: BP 106/68
[~2019-03-23] MED LIST changes: +ATOR40TA59 PO; +INSU100V8 SQ; +LEVO137T3 PO; +LISI10TA2 PO; +METF500T16 PO; +POTA10TA10 PO; +VALS80TA3 PO
--- NOTE | 2019-03-23 14:37 | RAD ---
DATE: 03/23/2019 EXAM: DIGITAL DIAGNOSTIC BILATERAL HISTORY: Left breast pain and tenderness for one week. COMPARISON: Previous mammogram from 2018. This study was interpreted with the benefit of Computerized Aided Detection (CAD). FINDINGS: Breast Density: SCATTERED The breast parenchyma shows scattered fibroglandular densities. Breast parenchyma level B. The skin and nipples are within normal limits for benign-appearing bilateral calcifications. No suspicious calcifications, spiculated mass or area of architectural distortion. IMPRESSION: No mammographic evidence of malignancy. BI-RADS CATEGORY: 2 BENIGN FINDING(S) RECOMMENDED FOLLOW-UP: 12M 12 MONTH FOLLOW-UP PQRS compliance statement: Patient information was entered into a reminder system with a target due date for the next mammogram. Mammography is a sensitive method for finding small breast cancers, but it does not detect them all and is not a substitute for careful clinical examination. A negative mammogram does not negate a clinically suspicious finding and should not result in delay in biopsying a clinically suspicious abnormality. "Our facility is accredited by the [employer] Mammography Program."
--- NOTE | 2019-03-23 14:38 | RAD ---
Indication: Left breast pain and tenderness TECHNIQUE: Left total breast ultrasound. COMPARISON: Same day mammogram FINDINGS: Dense breast tissue noted. No solid or cystic lesion. IMPRESSION: No abnormal sonographic findings. BI-RADS 2: Benign findings. Clinically correlate.
--- NOTE | 2019-03-23 16:39 | RAD ---
Indication: Right lower quadrant abdominal pain. TECHNIQUE: Grayscale and color Doppler images of the kidneys COMPARISON: None FINDINGS: The right kidney measures 10.0 x 4.5 x 5.2 cm without hydronephrosis. Exophytic simple cyst in the right kidney measuring 2.4 x 2.0 x 2.4 cm. The left kidney measures 10.5 x 4.0 x 5.6 cm without hydronephrosis. Bladder within normal limits. IMPRESSION: No hydronephrosis. Electronically signed by: Peter Collins DO (03/23/2019 4:36 PM) [facility]
== END | disposition home or self-care (01) ==
LOC: US 12:16
PROVIDERS: ATTEND Physician Assistant Medical
DX: N28.1 Cyst of kidney, acquired (principal); R92.1 Mammographic calcification found on diagnostic imaging of breast
CPT/HCPCS: 76641; 76770; 77066